=== PATIENT | male | born 1945 | race Caucasian/White ===

== ENCOUNTER → 2023-08-29 07:19 | Outpatient (REF) | payer MEDICARE, OTHER, SELFPAY | LOC: MRI 07:19 | PROVIDERS: ATTENDING PHYSICIAN Urology; FAMILY PHYSICIAN Internal Medicine | DX: R97.20 Elevated prostate specific antigen [PSA] (principal) | CPT/HCPCS: 72197; A9575 ==

== ENCOUNTER → 2023-11-26 11:38 | Outpatient (REF) | payer MEDICARE, OTHER, SELFPAY | LOC: MRI 3T 11:38 | PROVIDERS: ATTENDING PHYSICIAN Pain Medicine Interventional Pain Medicine; FAMILY PHYSICIAN Internal Medicine | DX: M54.16 Radiculopathy, lumbar region (principal) | CPT/HCPCS: 72158; A9575 ==

== ENCOUNTER → 2024-01-27 19:09 | Outpatient (REF) | payer MEDICARE, OTHER, SELFPAY | LOC: MRI 19:09 | PROVIDERS: ATTENDING PHYSICIAN Urology; FAMILY PHYSICIAN Internal Medicine | DX: R97.20 Elevated prostate specific antigen [PSA] (principal) | CPT/HCPCS: 72197; A9575 ==

== ENCOUNTER 2025-04-25 19:15 | Inpatient (IN) | payer MEDICARE, OTHER, SELFPAY ==
[2025-04-25] VITALS (9 sets, daily range): BP systolic 165–200; BP diastolic 39–102; BMI 34.1
--- NOTE | 2025-04-25 16:28 | ED.GENMED ---
History of Present Illness
<Jose Hernandez PA-C - Last Filed: 04/25/25 17:52>
General
Chief Complaint: Heart Rate Problem
Time Seen by Provider: 04/25/25 16:19
History of Present Illness
History of Present Illness:
80-year-old male with history of obstructive sleep apnea, tobacco use, hypertension, hyperlipidemia, and diet-controlled diabetes presents to the emergency department for evaluation of a low heart rate. He states for several months he has been
progressively weaker and dealing with depression, for the past 2 weeks this seems to have escalated and he was referred to outpatient physical therapy by his primary care physician. On arrival to physical therapy his vital signs were assessed and
he was noted to have a heart rate of 30. Patient reports general fatigue but denies any chest pain or shortness of breath. Per his he has had essentially no tolerance to even minimal exertion over the past 2 weeks. He denies leg swelling,
weight gain, or night sweats. No recent fevers or chills. Denies any recent or remote tick bites to his knowledge.
Past History
<Jose Hernandez PA-C - Last Filed: 04/25/25 17:52>
Past History
ED Past Medical History: GERD, HTN, NIDDM, Renal failure and Other (sleep apnea)
ED Past Surgical History: Orthopedic
Social History
Tobacco: Non-smoker
Personal:
Living: with family
Review of Systems
<Jose Hernandez PA-C - Last Filed: 04/25/25 17:52>
Review of Systems
Allergies reviewed?: Yes
All Other Systems: ROS reviewed and negative except as documented in HPI and ROS
Phy Exam
<Jose Hernandez PA-C - Last Filed: 04/25/25 17:52>
Physical Exam
Physical Exam:
GEN: Well appearing, NAD, WDWN
Eyes: PERRLA, EOMs intact, no scleral icterus
HENT: NCAT, oral mucosa moist
Lungs: CTAB, no wheezes, rales, rhonchi, normal chest wall excursion
Cardiac: Severely bradycardic, irregular, no murmur
Abdomen: S, NT, ND, NABS, no masses or hepatosplenomegaly
Neuro: AO x 3
MSK: No gross deformity or ecchymosis. Trace bilateral lower extremity edema
Skin: No rashes, petechiae. Normal color, no pallor or jaundice.
Psych: Calm, cooperative, proper hygiene
Course
<Jose Hernandez PA-C - Last Filed: 04/25/25 17:52>
Orders/Labs/Results
Orders:
Orders
04/25/25 16:19
EKG [Electrocardiogram (*1)] Stat
Reason for Study: Bradycardia / Tachycardia
EKG- Treatment ONCE
04/25/25 16:28
CR Chest Portable - 1 View Urgent
Comment:
Reason For Exam: heart block
Reason Study Needs to be Portable: Other
04/25/25 16:49
Complete Blood Count/With Diff Urgent
Comprehensive Metabolic Panel Urgent
Lyme Progressive Urgent
Magnesium Urgent
NT-proBNP Urgent
TSH Reflex To Free T4 Urgent
Troponin I Urgent
04/25/25 17:45
Amlodipine [Norvasc] 5 mg PO NOW STA
04/25/25 17:48
0.9% Sodium Chloride 1000 ml [Nss] 1,000 ml IV BOLUS
Dextrose 50%-Water [Dextrose 50% Syringe] 12.5 grams IV [id number] PRN
Dextrose 50%-Water [Dextrose 50% Syringe] 25 grams IV NOW STA
Insulin Human Regular [Novolin R] 5 units IV NOW STA
Bedside Glucose PRE IV Insulin- HyperK+ NOW
04/25/25 19:18
Bedside Glucose POST IV Insulin- HyperK+ Q1HX2,Q2HX2
04/25/25 20:18
Potassium Urgent
Comment: draw 2 hours after regular insulin IV administration
04/26/25 06:00
Echo 2D MMode Color/Doppler IN AM
Reason for Study: complete heart block
Cardiology Consult: Omer Vergara
Comment: Please do is one of the first studies of Friday
Abnormal Lab Results
04/25/25 04/25/25
16:49 18:03
RBC 3.61 L 10^6/uL
(4.70-6.10)
Hgb 11.7 L g/dL
(13.0-18.0)
Hct 34.1 L %
(39.0-52.0)
MCV 94.5 H fL
(80.0-94.0)
MCH 32.4 H pg
(27.0-31.0)
MPV 11.6 H fL
(7.4-10.4)
Absolute Monos (auto) 0.7 H 10^3/uL
(0.1-0.6)
Sodium 132 L mmol/L
(135-145)
Potassium 5.9 H mmol/L
(3.5-5.1)
BUN 84 H mg/dl
(9-20)
Creatinine 1.9 H mg/dL
(0.7-1.3)
Glucose 112 H mg/dl
(70-99)
Calcium 8.3 L mg/dl
(8.4-10.2)
Magnesium 2.5 H mg/dl
(1.6-2.3)
Troponin I 0.049 H* ng/ml
POC Glucose 113 H mg/dl
(70-99)
04/25/25 16:49
Vital Signs
Initial and Last Documented VS:
Initial Vital Signs
Temp Pulse Resp Pulse Ox
98.2 F 30 18 98
04/25/25 16:10 04/25/25 16:10 04/25/25 16:10 04/25/25 16:10
Last Documented Vital Signs
Temp Pulse Resp BP Pulse Ox
98.2 F 26 15 172/48 97
04/25/25 16:59 04/25/25 17:30 04/25/25 17:30 04/25/25 16:59 04/25/25 17:30
<Wesley Otero, DO - Last Filed: 04/25/25 18:13>
Orders/Labs/Results
Orders:
Orders
04/25/25 16:19
EKG [Electrocardiogram (*1)] Stat
Reason for Study: Bradycardia / Tachycardia
EKG- Treatment ONCE
04/25/25 16:28
CR Chest Portable - 1 View Urgent
Comment:
Reason For Exam: heart block
Reason Study Needs to be Portable: Other
04/25/25 16:49
Complete Blood Count/With Diff Urgent
Comprehensive Metabolic Panel Urgent
Lyme Progressive Urgent
Magnesium Urgent
NT-proBNP Urgent
TSH Reflex To Free T4 Urgent
Troponin I Urgent
04/25/25 17:45
Amlodipine [Norvasc] 5 mg PO NOW STA
04/25/25 17:48
0.9% Sodium Chloride 1000 ml [Nss] 1,000 ml IV BOLUS
Dextrose 50%-Water [Dextrose 50% Syringe] 12.5 grams IV [id number] PRN
Dextrose 50%-Water [Dextrose 50% Syringe] 25 grams IV NOW STA
Insulin Human Regular [Novolin R] 5 units IV NOW STA
Bedside Glucose PRE IV Insulin- HyperK+ NOW
04/25/25 19:18
Bedside Glucose POST IV Insulin- HyperK+ Q1HX2,Q2HX2
04/25/25 20:18
Potassium Urgent
Comment: draw 2 hours after regular insulin IV administration
04/26/25 06:00
Echo 2D MMode Color/Doppler IN AM
Reason for Study: complete heart block
Cardiology Consult: Omer Vergara
Comment: Please do is one of the first studies of Friday
Abnormal Lab Results
04/25/25 04/25/25
16:49 18:03
RBC 3.61 L 10^6/uL
(4.70-6.10)
Hgb 11.7 L g/dL
(13.0-18.0)
Hct 34.1 L %
(39.0-52.0)
MCV 94.5 H fL
(80.0-94.0)
MCH 32.4 H pg
(27.0-31.0)
MPV 11.6 H fL
(7.4-10.4)
Absolute Monos (auto) 0.7 H 10^3/uL
(0.1-0.6)
Sodium 132 L mmol/L
(135-145)
Potassium 5.9 H mmol/L
(3.5-5.1)
BUN 84 H mg/dl
(9-20)
Creatinine 1.9 H mg/dL
(0.7-1.3)
Glucose 112 H mg/dl
(70-99)
Calcium 8.3 L mg/dl
(8.4-10.2)
Magnesium 2.5 H mg/dl
(1.6-2.3)
Troponin I 0.049 H* ng/ml
POC Glucose 113 H mg/dl
(70-99)
04/25/25 16:49
Vital Signs
Initial and Last Documented VS:
Initial Vital Signs
Temp Pulse Resp Pulse Ox
98.2 F 30 18 98
04/25/25 16:10 04/25/25 16:10 04/25/25 16:10 04/25/25 16:10
Last Documented Vital Signs
Temp Pulse Resp BP Pulse Ox
98.2 F 26 15 172/48 97
04/25/25 16:59 04/25/25 17:30 04/25/25 17:30 04/25/25 16:59 04/25/25 17:30
<Jose Hernandez PA-C - Last Filed: 04/25/25 17:52>
*Pulse Oximetry
SaO2: 98
Oxygen Mode of Delivery: Room air
<Wesley Otero DO - Last Filed: 04/25/25 18:13>
*Pulse Oximetry
Patient hypoxic: no
*Sales Officer Interpretation
Rate: bradycardiac
Interpretation: abnormal
Heart Rate: 28
Rhythm: other
*Critical Care Note
Total Time (30-74mins, 75-104mins- exclusive of procedures): 32
Data Reviewed
Review of Other/Old Records Reveals: Labs
Source: patient
ED Attending Note
<Jose Hernandez PA-C - Last Filed: 04/25/25 17:52>
-
Portions of this chart may have been created with voice recognition software.� Occasional wrong word or��sound alike� substitutions may have occurred due to the inherent limitations of voice recognition software.
<Wesley Otero DO - Last Filed: 04/25/25 18:13>
ED Attending Note
Patient seen and examined by attending physician: Yes
I performed the substantive portion of visit, reviewed & personally made and approve the management plan that is documented in note by myself or HOME.: Yes
ED Attending Note:
Seen with PA examined independently presents with fatigue, looks to be in high degree AV block, will check for any reversible causes,
Discharge Plan
Departure
Patient Disposition: Admit
Date of Disposition: 04/25/25
Time of Disposition: 17:47
Admit to: IVU
Presentation/result/management discussed w/ accepting MD/DO: Hospitalist
Discharge Problem:
Complete heart block, YURIY (acute kidney injury)
Prescriptions:
No Action
atorvastatin 40 MG tablet
40 mg PO DAILY
ascorbic acid (vitamin C) [Vitamin C] 500 MG tablet
500 mg PO DAILY
B-complex with vitamin C [Super B/C] 1 EACH capsule
1 ea PO DAILY
calcium carb, citrate-vit D3 1 EACH tablet extended release
1 tab PO DAILY
bupropion HCl 75 MG tablet
75 mg PO DAILY
acetaminophen 500 mg Tablet
1,000 mg PO Q6H PRN (Reason: mild pain)
doxazosin 8 mg Tablet
8 mg PO HS
Glucosamine Chondroitin 550-30-1 mg Capsule
1 cap PO DAILY
multivitamin Tablet
1 tab PO DAILY
venlafaxine 75 mg capsule,extended release 24hr
75 mg PO DAILY
Rx Instructions:
taken w/ 150mg = 225mg
tizanidine 2 mg tablet
2 mg PO Q8H PRN (Reason: muscle spasms)
venlafaxine 150 mg capsule,extended release 24hr
150 mg PO DAILY
Rx Instructions:
taken w/ 75mg = 225mg
ramipril 10 mg capsule
10 mg PO DAILY
trazodone 100 mg tablet
100 mg PO HS Qty: 1 0RF
oxycodone 5 mg tablet
5 mg PO Q4H PRN (Reason: moderate pain) Qty: 1 0RF
amlodipine [Norvasc] 2.5 mg tablet
2.5 mg PO DAILY Qty: 30 0RF
Rx Instructions:
take low dose Norvasc for systolic blood pressure more than 160
clonazepam 2 MG tablet
2 mg PO HS
Referrals:
NONE,* [Active, Internal Medicine]
Interventions
Interventions:
*Risk Screen - Suicide Last Done: 04/25/25 16:10
*General Assessment Last Done: 04/25/25 16:45
*ED- Fall Risk Assessment Last Done: 04/25/25 16:45
*ED COVID-19 Vaccine History Last Done: 04/25/25 16:45
*ED Influenza Vaccine History Last Done: 04/25/25 16:45
ED- Cardiac Assessment Last Done: 04/25/25 16:45
ED- Pulmonary Assessment Last Done: 04/25/25 16:45
Discharge Date and Time
Print Language: MACEDONIAN
[2025-04-25 17:04] LABS: Hematocrit 34.1 % (39.0-52.0); Hemoglobin 11.7 g/dL (13.0-18.0); Mean Corp Hgb Conc. 34.3 g/dL (33.0-37.0); Mean Corpuscular Volume 94.5 fL (80.0-94.0); Nucleated Red Blood Cells % 0 % (-); Platelet Count 146 10^3/uL (130-400); Red Cell Dist. Width 11.8 % (11.5-14.5)
[2025-04-25 17:18] LABS: ALT (SGPT) 24 U/L (0-50); AST (SGOT) 25 U/L (17-59); Albumin 3.7 g/dl (3.5-5.0); Alkaline Phosphatase 74 U/L (38-126); Blood Urea Nitrogen 84 mg/dl (9-20); Calcium 8.3 mg/dl (8.4-10.2); Carbon Dioxide 23 mmol/L (22-30); Chloride 107 mmol/L (98-107); Estimated Creatinine Clearance 37 ml/min; Glucose 112 mg/dl (70-99); Magnesium 2.5 mg/dl (1.6-2.3); Potassium 5.9 mmol/L (3.5-5.1); Sodium 132 mmol/L (135-145); Total Protein 6.4 g/dl (6.3-8.2); eGFR 35.66
[2025-04-25 17:31] LABS: Troponin I 0.049 ng/ml
--- NOTE | 2025-04-25 17:35 | CON.CAR ---
Addendum entered and electronically signed by Omer Vergara MD 04/25/25 18:24:
.
Primary associate creative director, Dr. Alfonso Peterson
Primary care physician, Dr. Lawson Hood
Patient seen, interviewed and examined by me.
Well-appearing, no acute distress
Bradycardic rate and normal rhythm with normal S1 and S2, no S3 no S4. There is a grade 1/6 apical holosystolic murmur and no rubs. PMI is normally placed.
Lungs are clear to auscultation bilaterally without wheezes rales or rhonchi.
Abdomen soft nontender nondistended with normoactive bowel sounds
Extremities show trace pretibial edema bilaterally no clubbing or cyanosis.
Neurologic exam is grossly nonfocal.
He presents with symptomatic (fatigue) complete heart block with right bundle escape at approximately 30 bpm. He has had no dizziness near-syncope or syncope. He has been otherwise hemodynamically stable, not hypotensive. proBNP is mildly
elevated at 5110 and likely represents a component of heart failure with preserved ejection fraction in the setting of complete heart block.
Medical history is additionally notable for obstructive sleep apnea (uses CPAP), alcohol use disorder, bipolar disorder, hypertension and dyslipidemia.
He did eat a protein shake earlier in the day. While he does have complete heart block with a right bundle branch escape, he has demonstrated hemodynamic stability thus far.
I have opted not to recommend temporary pacing wire tonight but if he were to have any decompensation, that would be the next step.
Plan would be likely permanent pacemaker tomorrow once we review his rhythm after correction of his electrolyte abnormalities and correction of his acute kidney injury.
He is being admitted to the medical service and cardiology will follow in consultation.
Original Note:
Consultation
Consultation Request
Date/Time Consultation Requested: 04/25/2025
Date/Time Consultation Performed: 04/25/2025
Requesting Provider: Dr. Otero in the ER
Performing Provider: Dr. Omer Vergara
Reason for Consultation: New diagnosis of complete heart block
Medical History
-
History of Present Illness:
Patient came to the ER today, his birthday, with 2 weeks worth of fatigue and exertional intolerance and was found to be in new complete heart block and cardiology has been consulted. Patient says that he started to feel tired 2 weeks ago and did
not have his usual energy. He saw his PCP on 04/12/2025 and HR at that time was 95 with a BP of 128/64. Patient was not sure if some of his symptoms were related to his underlying depression for which he takes trazodone, Effexor or and Wellbutrin
plus Klonopin as needed as well, but then in the last 2 weeks his fatigue got even worse and did not seem like his usual depression. When he saw his PCP he was referred to physical therapy and when he arrived to PT today his heart rate was in the
30s and he was referred to the ER. He denies any chest pain or SOB. He denies any edema. He says he has never had a problem like this before.
PMH:
EtOH use disorder
AMBROSE on CPAP
Bipolar depression
HTN
Hyperlipidemia
Past Medical History
Past Medical History: Other (In HPI)
Past Surgical History: Appendectomy and Orthopedic (Lumbar laminectomy, left ROWAN with multiple repeat surgeries due to infection)
Social History
Tobacco: Non-Smoker
Alcohol: Daily (3 [employer] daily)
Drug: None
Family History
Family History: Other (Father of TB, mother of cerebral hemorrhage at age 52)
Allergies / Home Medications
Allergy/AdvReac Type Severity Reaction Status Date / Time
latex Allergy Rash Verified 04/25/25 16:10
�Medication �Instructions �Recorded �Confirmed �Type
B-complex with vitamin C (Super 1 ea PO DAILY 06/18/14 01/16/23 History
B/C capsule)
ascorbic acid (vitamin C) 500 mg 500 mg PO DAILY 06/18/14 01/16/23 History
tablet (Vitamin C)
atorvastatin 40 mg tablet 40 mg PO DAILY 06/18/14 01/16/23 History
calcium ER 600 mg (as carb,cit)-D3 1 tab PO DAILY 06/18/14 01/16/23 History
12.5 mcg (500 unit) tablet, ext.rel
bupropion HCl 75 mg tablet 75 mg PO DAILY 11/03/20 01/16/23 History
acetaminophen 500 mg tablet 1,000 mg PO Q6H PRN mild pain 12/20/22 01/16/23 History
doxazosin 8 mg tablet 8 mg PO HS 12/20/22 01/16/23 History
glucosamine sulf dipot 1 cap PO DAILY 12/25/22 01/16/23 History
chlr,msm,chond 550 mg-C 30 mg-kuldip
1 mg capsule (Glucosamine
Chondroitin)
multivitamin 1 tab PO DAILY 01/16/23 01/16/23 History
ramipril 10 mg capsule 10 mg PO DAILY 01/16/23 01/16/23 History
tizanidine 2 mg tablet 2 mg PO Q8H PRN muscle spasms 01/16/23 01/16/23 History
venlafaxine 150 mg 150 mg PO DAILY 01/16/23 01/16/23 History
capsule,extended release 24 hr
venlafaxine 75 mg capsule,extended 75 mg PO DAILY 01/16/23 01/16/23 History
release 24 hr
amlodipine 2.5 mg tablet (Norvasc) 2.5 mg PO DAILY #30 tabs 01/20/23 Rx
clonazepam 2 mg tablet 2 mg PO HS #1 tab 01/20/23 Rx
oxycodone 5 mg tablet 5 mg PO Q4H PRN moderate pain #1 01/20/23 Rx
tab
trazodone 100 mg tablet 100 mg PO HS #1 tab 01/20/23 Rx
Review of Systems
-
History Source: Patient
All other systems: Negative unless noted
Physical Exam
Vital Signs
Temp Pulse Resp BP Pulse Ox
98.2 F 26 15 172/48 97
11/17/25 16:59 04/25/25 17:30 04/25/25 17:30 04/25/25 16:59 04/25/25 17:30
GEN: NAD, AAO x 3
HEENT: EOMI, MMM
LUNGS: RA. CTA B/L, no wheeze
CV: Complete heart block on telemetry. Reg, S1/S2, no murmur
ABD: ND
EXT: No edema B/L LE
NEURO: Gross non-focal
SKIN: No rash
Lab Results
04/25/25 16:49
04/25/25 16:49
Troponin I 0.049 ng/ml H* 04/25/25 16:49
Kqz-V-Czlwyxdlwwi Pept 5110 pg/ml 04/25/25 16:49
Impression / Plan
-
PCP: Dr. Hood
Cardiology: Dr. Peterson, last seen as a preop consultation 12/31/2022
Impression:
Presented with fatigue and exertional intolerance, new finding of complete heart block 04/25/2025
Complete heart block
YURIY
Hyperkalemia
EtOH use disorder
AMBROSE on CPAP
Bipolar depression
HTN
Hyperlipidemia
Stress echo 04/18/2021: Completed 9 minutes of a modified Huber protocol for total of 4.6 METS of activity and reached 82% of MPHR, intermediate risk stress test based on poor exercise tolerance, but stress echo imaging without obvious abnormality
Plan:
-Patient came to the ER today, his birthday, with 2 weeks worth of fatigue and exertional intolerance and was found to be in new complete heart block and cardiology has been consulted. Patient says that he started to feel tired 2 weeks ago and did
not have his usual energy. He saw his PCP on 04/12/2025 and HR at that time was 95 with a BP of 128/64. Patient was not sure if some of his symptoms were related to his underlying depression for which he takes trazodone, Effexor or and Wellbutrin
plus Klonopin as needed as well, but then in the last 2 weeks his fatigue got even worse and did not seem like his usual depression. When he saw his PCP he was referred to physical therapy and when he arrived to PT today his heart rate was in the
30s and he was referred to the ER. He denies any chest pain or SOB. He denies any edema. He says he has never had a problem like this before.
-ECG reviewed by me is complete heart block
-Patient with complete heart block and a right bundle escape. Patient is not taking any AV katherine blockers. He is hyperkalemic with a potassium of 5.9 and also evidence of new YURIY with creatinine of 1.9. Ramipril should be held
-Consider nephrology consultation. Patient tells me he follows with a drainage design coordinator as an outpatient, but I cannot find any record of that in his [facility] chart and outpatient labs were normal within the last 4 months.
-Recheck labs in a.m. and likely plan on PPM placement on 04/26/2025
-Would also hold Cardura
-BP 170/80, start amlodipine 5 mg daily, a NOW dose was ordered for the ER by me
-Check echo in a.m., order placed by me
-Watch for EtOH withdrawal, patient drinks 3 rum and Cokes a day
--- NOTE | 2025-04-25 17:51 | HPS.HSE ---
Addendum entered and electronically signed by Natasha Callaway MD 04/25/25 19:49:
This is an addendum to the H&P written by Blanka Iyer on 04/25/2025. �Patient seen and examined independently with TOE POUNDER.
80-year-old male past medical history of type 2 diabetes, alcohol use disorder, obstructive sleep apnea on CPAP, posttraumatic stress disorder, bipolar, hypertension, hyperlipidemia, chronic anemia, obesity, presenting with low heart rate. �Weakness
for several months and depression referred for outpatient physical therapy. �At physical therapy heart rate of 30. �Denies shortness of breath or chest pain. �Occasional lightheadedness.
Vital signs show blood pressure 172/48.
Labs show stable anemia of 11.7.
Potassium 5.9. �Creatinine 1.9. �Troponin 0.049. �Cardiac BNP 5000.
EKG shows complete heart block, right bundle branch. �Chest x-ray appears to be unremarkable, report pending.
Patient with symptomatic, hemodynamically stable complete heart block. �Cardiology consulted. �N.p.o. for potential permanent pacemaker tomorrow.
Patient also with possible mild limit of congestive heart failure although not overtly volume overloaded. �YURIY and hyperkalemia could be cardiorenal although unclear. �Hold ramipril. �Insulin dextrose was given. �Recheck BMP. Consider nephrology.
Alcohol withdrawal protocol.
Original Note:
Family Physician
-
Family Physician: * NONE
Chief Complaint
-
generalized weakness
History of Present Illness
Patient is a 80-year-old male with past medical history significant for hypertension, hyperlipidemia, type 2 diabetes, bipolar depression and AMBROSE who presented to [facility] ED for evaluation of generalized weakness. Patient reports he has had slowly
progressing generalized weakness over past 6 months, he states that he was seen recently by his primary care as he got to point he could barely ambulate from his living room to kitchen. Primary care gave him an order for PT. Today he went to PT for
initial evaluation when they referred him to ED for low heart rate. He indorses intermittent lightheadedness. Denies any chest pain, shortness of breath or syncope.
Medical History
Past Medical History
Past Medical History: Reports Other
Additional Past Medical History:
hypertension
hyperlipidemia
type 2 diabetes
bipolar depression
AMBROSE
Past Surgical History: Reports Other
Additional Past Surgical History:
hip [id number] subsequent surgeries due to infection left side
wisdom tooth extraction
Appendectomy
rotator cuff surgery r shoulder 10/2020
Lumbar laminectomy-[facility] 01/13/2023
Social History
Alcohol: Daily (3 rum and cokes per day)
Family History
Family History: Not pertinent
Allergies / Home Medications
Allergies reflects when Allergies were last updated in [employer].
Home Medications with original date entered in [employer]
Allergy/Medication List:
Allergies
Allergy/AdvReac Type Severity Reaction Status Date / Time
latex Allergy Rash-'I Verified 04/25/25 17:46
don't know'
Home Medications
B-complex with vitamin C (Super B/C capsule) 1 ea PO DAILY Supplement 06/18/14
ascorbic acid (vitamin C) 500 mg tablet (Vitamin C) 500 mg PO DAILY Supplement 06/18/14
atorvastatin 40 mg tablet 40 mg PO DAILY High Cholesterol 06/18/14
acetaminophen 500 mg tablet 1,000 mg PO Q6HPRN PRN mild pain 12/20/22
doxazosin 8 mg tablet 8 mg PO HS 12/20/22
glucosamine sulf dipot chlr,msm,chond 550 mg-C 30 mg-kuldip 1 mg capsule (Glucosamine Chondroitin) 1 cap PO DAILY Supplement 12/25/22
ramipril 10 mg capsule 10 mg PO DAILY Heart Disease/Condition 01/16/23
venlafaxine 150 mg capsule,extended release 24 hr 150 mg PO DAILY Mental Health/Anxiety 01/16/23
venlafaxine 75 mg capsule,extended release 24 hr 75 mg PO DAILY Mental Health/Anxiety 01/16/23
bupropion HCl 150 mg 24 hr tablet, extended release (Wellbutrin XL) 150 mg PO DAILY Mental Health/Anxiety 04/25/25
clonazepam 2 mg tablet 2 mg PO HS Mental Health/Anxiety 04/25/25
trazodone 100 mg tablet 100 mg PO HS Sleep 04/25/25
Review of Systems
-
History Source: Patient
Constitutional: Denies Fever or Chills
EENT: Denies Sore Throat
Respiratory: Denies Cough, Hemoptysis or Trouble Breathing
Cardiac: Denies Chest Pain, Diaphoresis or Palpitations
Abdomen/GI: Denies Abdominal Pain, Nausea, Vomiting or Diarrhea
: Denies Dysuria, Frequency or Urgency
Musculoskeletal: Denies Joint Pain
Skin: Denies Rash
Neurological: Reports Dizzy (intermittent lightheadedness) and Weakness (generalized weakness ); Denies Headache or Numbness
Endocrine: Denies Polyuria
Physical Exam
Vital Signs
Vital Signs
Temp Pulse Resp BP Pulse Ox
98.2 F 26 15 172/48 97
04/25/25 16:59 04/25/25 17:30 04/25/25 17:30 04/25/25 16:59 04/25/25 17:30
Physical Exam
General: Well Developed, Well Nourished, No Apparent Distress, Comfortable, Conversant and Obese
HEENT: NormoCephalic, PERRLA, Nose Appears Normal and Ears Appear Normal
Respiratory: Clear and Non Labored Respirations; No Wheezes
Cardiac: S1/S2 and Regular Rhythm; No Murmur or Peripheral Edema
GI: Soft, Non Tender, Non Distended and Normal Bowel Sounds
Musculoskeletal: No Clubbing, No Cyanosis and No Edema
Skin: Warm and IV/Catheter Site
Neuro: Awake and AO x 3
Hematologic/Lymphatic: No Lymphadenopathy
Psych: Calm
Laboratory Results
-
04/25/25 16:49
Laboratory Results
Total Bilirubin 1.2 mg/dl (0.2-1.3) 04/25/25 16:49
AST 25 U/L (17-59) 04/25/25 16:49
ALT 24 U/L (0-50) 04/25/25 16:49
Alkaline Phosphatase 74 U/L (38-126) 04/25/25 16:49
Troponin I 0.049 ng/ml H* 04/25/25 16:49
Data Reviewed
-
Medical Tests (Nuc Med, Echo, EKG etc): Report Reviewed by me (EKG: Critical Test Result: Low HR , AV Block SINUS RHYTHM WITH COMPLETE HEART BLOCK AND IDIOVENTRICULAR RHYTHM LEFT AXIS DEVIATION RIGHT BUNDLE BRANCH BLOCK MINIMAL VOLTAGE CRITERIA
FOR LVH, MAY BE NORMAL VARIANT ( R in aVL ))
Lab Data: Labs Reviewed by me (Na 132, K 5.9, BUN 84, Creat 1.9, glucose 112, Ca 8.3 (corrected to 8.5), mag 2.5, trop 0.049, pBNP 5110)
Impression/Plan
-
IMPRESSION/PLAN:
#generalized weakness likely 2/2 complete heart block
trop 0.049, pBNP 5110
EKG: Critical Test Result: Low HR , AV Block
SINUS RHYTHM WITH COMPLETE HEART BLOCK AND IDIOVENTRICULAR RHYTHM
LEFT AXIS DEVIATION
RIGHT BUNDLE BRANCH BLOCK
MINIMAL VOLTAGE CRITERIA FOR LVH, MAY BE NORMAL VARIANT ( R in aVL )
- Admit to IVU
- Consult Cardiology
- NPO at midnight for likely pacer
- check ECHO
- hold doxazosin
#hyperkalemia
- insulin/dextrose administered in ED
- monitor BMP
#acute kidney injury
Na 132, K 5.9, BUN 84, Creat 1.9
- monitor BMP
- hold ramipril
- consider nephrology consult if does not improve
#alcohol use disorder
reports 3 rum and cokes daily
- MSAS protocol
#hypertension
- hold doxazosin and ramipril
- start amlodipine
#hyperlipidemia
- continue atorvastatin
#type 2 diabetes
glucose 112
reports is diet controlled
- monitor for hypo/hyper glycemia
#bipolar depression
- continue bupropion and venlafaxine
#AMBROSE
on CPAP at night
- CPAP PRN and HS
Code status: full code
DVT prophylaxis: heparin sq
[2025-04-25 18:04] LABS: Glucose - Point of Care 113 mg/dl (70-99)
[2025-04-25] MEDS: DEXTROSE 50% SYRINGE 25 GRAMS IV (18:04)
[2025-04-25] MEDS: NOVOLIN R 5 UNITS IV (18:04)
[2025-04-25] MEDS: NORVASC 5 MG PO (18:07)
[2025-04-25] MEDS: NSS 1000 IV (18:40)
[2025-04-25 19:22] LABS: Glucose - Point of Care 143 mg/dl (70-99)
[2025-04-25 20:20] LABS: Glucose - Point of Care 149 mg/dl (70-99)
[2025-04-25 21:16] LABS: Potassium 5.2 mmol/L (3.5-5.1)
[2025-04-25 22:11] LABS: Glucose - Point of Care 165 mg/dl (70-99)
[2025-04-25] MEDS: KLONOPIN 2 MG PO (22:39)
[2025-04-25] MEDS: DESYREL 100 MG PO (22:39)
[2025-04-25 22:57] LABS: Troponin I 0.046 ng/ml
[2025-04-25] MEDS: HEPARIN 5000 UNITS SC (23:06)
[2025-04-26] VITALS (14 sets, daily range): BP systolic 110–179; BP diastolic 48–156; PULSE 71; BMI 36.7
[2025-04-26 01:05] LABS: Glucose - Point of Care 161 mg/dl (70-99)
[2025-04-26 03:55] LABS: Troponin I 0.044 ng/ml
[2025-04-26 03:59] LABS: Blood Urea Nitrogen 85 mg/dl (9-20); Calcium 7.9 mg/dl (8.4-10.2); Carbon Dioxide 22 mmol/L (22-30); Chloride 110 mmol/L (98-107); Estimated Creatinine Clearance 40 ml/min; Glucose 137 mg/dl (70-99); HDL Cholesterol 36 mg/dl; LDL Cholesterol, Calculated 64 mg/dl; Potassium 5.4 mmol/L (3.5-5.1); Sodium 135 mmol/L (135-145); Very Low Density Lipoprotein 24 mg/dl (0-30); eGFR 40.75
--- NOTE | 2025-04-26 04:15 | PTCARENOTE ---
Pt admitted from ED to room 2251, aaox3, denies c/o CP, lightheadedness or SOB. SB with complete HB on tele, HR low 30's. Pox 95%, O2 @ 2L applied via NC, CPap applied at bedtime. SBP high 170-180's, asymptomatic. Norvasc was given in ED prior
transferring pt on the unit. K 5.2. grounds maintenance worker DRILLING RIG OPERATOR made aware, on pt labs and BP, no new orders at this time.
[2025-04-26 07:18] LABS: Glucose - Point of Care 134 mg/dl (70-99)
[2025-04-26 09:33] LABS: Glycohemoglobin (HgbA1c) 6.3 % (4.0-5.9)
[2025-04-26] MEDS: LOKELMA 10 GRAM PO (10:30)
[2025-04-26] MEDS: EFFEXOR XR 150 MG PO (10:31)
[2025-04-26] MEDS: LIPITOR 40 MG PO (10:31)
[2025-04-26] MEDS: WELLBUTRIN XL (24 hour extended release) 150 MG PO (10:31)
[2025-04-26] MEDS: HEPARIN 5000 UNITS SC (10:31)
[2025-04-26] MEDS: EFFEXOR XR 75 MG PO (10:31)
--- NOTE | 2025-04-26 11:00 | CM ---
Chart reviewed. Patient is independent of ADLS, lives with his in a [address], [facility], ambulates with a RW and also has a SPC. Plan is for the patient to return home. CM to follow
[2025-04-26] MEDS: NORVASC 5 MG PO (11:29)
--- NOTE | 2025-04-26 11:39 | W.PN.UPDATE ---
Update Note
Progress Note Update
Discussed pacemaker implantation with patient. He is right-hand dominant so we will place a left-sided dual-chamber pacemaker. Prior echocardiogram and stress echocardiogram reviewed with normal ejection fraction. I discussed with patient and
warned of thousand risk of [place] stroke and and a 1% risk of pneumothorax tamponade infection or bleeding. I took time to answer all questions. He is agreeable to dual-chamber pacemaker implantation later today. He signed informed consent. He
has not had any significant longer pauses on telemetry and remarks for approximately 6 to 8 weeks of fatigue.
[2025-04-26 12:23] LABS: Glucose - Point of Care 131 mg/dl (70-99)
--- NOTE | 2025-04-26 12:25 | W.CON.NEPH ---
Consultation
-
Date/Time Consultation Requested: 04/26/2025 10:00 AM
Date/Time Consultation Performed: 04/26/2025 12:30 PM
Requesting Provider: Dr. Penny
Performing Provider: Dr. Carty
Reason for Consultation: Acute kidney injury/hyperkalemia
Medical History
-
Chief Complaint: Acute kidney injury/Hyperkalemia
History of Present Illness:
The patient is a 80-year-old male with a past medical history of anxiety maintained on Wellbutrin,Venlafaxine, and clonazepam. He has a history of dyslipidemia maintained on statin therapy. He has a history of hypertension maintained on ramipril
and doxazosin. He has a known history of PTSD and bipolar disease. He presented with bradycardia and weakness over the past several months. Nephrology was consulted for hyperkalemia with a potassium of 5.4 and acute kidney injury with a
creatinine up from 0.8 noted from January 2023 to 1.7. He has remained hemodynamically stable but will require pacemaker placement.
Past Medical History
EtOH use disorder
AMBROSE on CPAP
Bipolar depression
HTN
Hyperlipidemia
Appendectomy and Orthopedic (Lumbar laminectomy, left ROWAN with multiple repeat surgeries due to infection)
Social History
Tobacco: Non-Smoker
Alcohol: Daily
Drug: None
Family History
no ckd
Allergies / Home Medications
Allergy/AdvReac Type Severity Reaction Status Date / Time
latex Allergy Rash-'I Verified 04/25/25 17:46
don't know'
�Medication �Instructions �Recorded �Confirmed �Type
B-complex with vitamin C (Super 1 ea PO DAILY Supplement 06/18/14 04/25/25 History
B/C capsule)
ascorbic acid (vitamin C) 500 mg 500 mg PO DAILY Supplement 06/18/14 04/25/25 History
tablet (Vitamin C)
atorvastatin 40 mg tablet 40 mg PO DAILY High Cholesterol 06/18/14 04/25/25 History
acetaminophen 500 mg tablet 1,000 mg PO Q6HPRN PRN mild pain 12/20/22 04/25/25 History
doxazosin 8 mg tablet 8 mg PO HS 12/20/22 04/25/25 History
glucosamine sulf dipot 1 cap PO DAILY Supplement 12/25/22 04/25/25 History
chlr,msm,chond 550 mg-C 30 mg-kuldip
1 mg capsule (Glucosamine
Chondroitin)
ramipril 10 mg capsule 10 mg PO DAILY Heart 01/16/23 04/25/25 History
Disease/Condition
venlafaxine 150 mg 150 mg PO DAILY Mental 01/16/23 04/25/25 History
capsule,extended release 24 hr Health/Anxiety
venlafaxine 75 mg capsule,extended 75 mg PO DAILY Mental 01/16/23 04/25/25 History
release 24 hr Health/Anxiety
bupropion HCl 150 mg 24 hr tablet, 150 mg PO DAILY Mental 04/25/25 04/25/25 History
extended release (Wellbutrin XL) Health/Anxiety
clonazepam 2 mg tablet 2 mg PO HS Mental Health/Anxiety 04/25/25 04/25/25 History
trazodone 100 mg tablet 100 mg PO HS Sleep 04/25/25 04/25/25 History
Review of Systems
-
History Source: Patient
All other systems: Negative unless noted
Constitutional: Fatigue
EENT: No Symptoms
Respiratory: No Symptoms
Cardiac: No Symptoms
Abdomen/GI: Diarrhea
Musculoskeletal: Other (Chronic back pain on NSAIDs daily)
Skin: No Symptoms
Neurological: No Symptoms
Endocrine: No Symptoms
Hematologic/Lymphatic: No Symptoms
Physical Exam
Vital Signs
Vital Signs
Temp Pulse Resp BP Pulse Ox
97.8 F 26 18 173/98 99
04/26/25 11:05 04/26/25 11:29 04/26/25 11:05 04/26/25 11:29 04/26/25 11:05
Lab Results
04/25/25 16:49
04/26/25 03:14
WBC 8.2 10^3/uL (4.8-10.8) 04/25/25 16:49
RBC 3.61 10^6/uL (4.70-6.10) L 04/25/25 16:49
Hgb 11.7 g/dL (13.0-18.0) L 04/25/25 16:49
Hct 34.1 % (39.0-52.0) L 04/25/25 16:49
Plt Count 146 10^3/uL (130-400) 04/25/25 16:49
Sodium 135 mmol/L (135-145) 04/26/25 03:14
Potassium 5.4 mmol/L (3.5-5.1) H 04/26/25 03:14
Chloride 110 mmol/L (98-107) H 04/26/25 03:14
Carbon Dioxide 22 mmol/L (22-30) 04/26/25 03:14
BUN 85 mg/dl (9-20) H 04/26/25 03:14
Creatinine 1.7 mg/dL (0.7-1.3) H 04/26/25 03:14
eGFR 40.75 04/26/25 03:14
Glucose 137 mg/dl (70-99) H 04/26/25 03:14
Calcium 7.9 mg/dl (8.4-10.2) L 04/26/25 03:14
Ktj-R-Gaasokfcflt Pept 5110 pg/ml 04/25/25 16:49
Albumin 3.7 g/dl (3.5-5.0) 04/25/25 16:49
Physical Exam
General: AOx3, Nontoxic , NAD
HEENT: PERRL, EOMI, Anicteric, Conjunctivae Clear, Ear/Nose Intact, Hearing Normal, Oropharynx Clear/Moist, Dentition Intact, Facial Symmetry, Neck Supple, Neck: Trachea Midline, No JVD and No Thyromegaly, no Bruits
Respiratory: Clear to auscultation bilaterally with normal lung excursion
Cardiac: S1/S2 and Regular Rate/Rhythm bradycardic
Breast: Deferred by me
Abdomen: Soft, Nontender, Nondistended, Normal Bowel Sounds and No Hepatosplenomegaly
Rectal: Deferred by Provider
Genito-urinary: No Costovertebral Tenderness
Extremities: No Clubbing, No Cyanosis and No Edema
Skin: No Rash or open lesions
Neuro: Nonfocal/Grossly Intact, CN II-XII (Intact) and Strength (Musculoskeletal exam 5 out of 5 both upper and lower extremities)
Hematologic/Lymphatic: No Cervical Lymphadenopathy, No Submandibular Lymphadenopathy and No Supraclavicular Lymphadenopathy
Psych: Mood/afflect pleasant, Insight/judgement good and Appropriate
Vascular: plus 1 pedal and radial pulses
Data Reviewed
-
Radiology: Report Reviewed by me (Chest x-ray personally reviewed showed mild interstitial changes but does not appear to be consistent with congestive heart failure or pneumonic process)
Labs: Labs Reviewed by me (BMP CBC)
Old Records: Reviewed (Reviewed old records in EMR from date January 17, 2023 creatinine 0.8)
Assessment/Plan
-
Impression:
Acute kidney injury (1.7)
Hyperkalemia
Symptomatic bradycardia
History of anxiety
Hypertension history
Dyslipidemia
Daily NSAID use for chronic back pain
Diabetes (diet controlled)
Plan:
YURIY:
- Will initiate new work up
- This could be prerenally mediated in setting of bradycardia although patient has been hemodynamically stable per review of hospital record
- Will obtain urine protein to creatinine ratio fractional secretion of sodium urinalysis and kidney and bladder ultrasound
- ARLENE inhibitor currently held and patient is on amlodipine for hypertension
- Of note patient takes daily NSAIDs and this could impact CKD
Hyperkalemia:
- Lokelma was given this morning
- ARLENE inhibitor currently
--- NOTE | 2025-04-26 12:37 | W.PN.HOSP.TC ---
Today's Communication/Plan
-
Monitor vitals
See plan
Plan for pacemaker today
Monitor renal function
Check urine studies
Bladder scan
Assessment / Plan
Assessment / Plan
General: Well Developed, Well Nourished, No Apparent Distress
HEENT: NormoCephalic, PERRLA
Respiratory: Clear and Non Labored Respirations; No Wheezes
Cardiac: S1/S2 and Regular Rhythm; bradycardia
GI: Soft, Non Tender, Non Distended and Normal Bowel Sounds
Musculoskeletal: No Edema
Neuro: Awake and AO x 3
Psych: Calm
generalized weakness likely 2/2 complete heart block
trop 0.049, pBNP 5110
EKG: Critical Test Result: Low HR , AV Block
SINUS RHYTHM WITH COMPLETE HEART BLOCK AND IDIOVENTRICULAR RHYTHM
LEFT AXIS DEVIATION
RIGHT BUNDLE BRANCH BLOCK
MINIMAL VOLTAGE CRITERIA FOR LVH, MAY BE NORMAL VARIANT ( R in aVL )
Cardiology following, plan for pacemaker today
- check ECHO
- hold doxazosin
Lyme studies pending
TSH wnl
Mild troponin elevation likely secondary to complete heart block
Monitor
#hyperkalemia
Monitor
kaxelate
#acute kidney injury
Na 132, K 5.9, BUN 84, Creat 1.9
- monitor BMP
- hold ramipril
Nephrology evaluation
Check UA, urine lites
Bladder scan
Acute urinary retention
Bladder scan, straight cath as needed
alcohol use disorder
reports 3 rum and cokes daily
- MSAS protocol
hypertension
Hypertensive urgency on admission
- hold doxazosin and ramipril
- start amlodipine
hyperlipidemia
- continue atorvastatin
type 2 diabetes
a1c 6.3
reports is diet controlled
- monitor for hypo/hyper glycemia
bipolar depression
- continue bupropion and venlafaxine
#AMBROSE
on CPAP at night
- CPAP PRN and HS
Code status: full code
DVT prophylaxis: heparin sq
I spent a total of 52 minutes with the patient or on the floor. More than 50% of this time involved counseling and coordination of care.
Anticipated Discharge: 24 - 48 hours
Subjective/Interval History
-
Date of Service: April 26, 2025
Does report fatigue
Objective Data
-
Labs:
Laboratory Results
04/26/25
03:14
Sodium 135
Potassium 5.4 H
Chloride 110 H
Carbon Dioxide 22
BUN 85 H
Creatinine 1.7 H
Glucose 137 H
Calcium 7.9 L
Vital Signs:
Vital Signs
Temp Pulse Resp BP Pulse Ox
97.8 F 26 18 173/98 99
04/26/25 11:05 04/26/25 11:29 04/26/25 11:05 04/26/25 11:29 04/26/25 11:05
I&O
04/25/25 04/26/25 04/27/25
06:59 06:59 06:59
Intake Total 1480 / 1480
Output Total 900 / 900
Balance 580 / 580
--- NOTE | 2025-04-26 13:58 | CM ---
Offered patient information on [facility] and substance abuse counseling. Patient declined
--- NOTE | 2025-04-26 15:58 | ITS.CL.PACE ---
[employer] - Pacemaker Implant
Pacemaker Implant
Procedure Report:
Date of Procedure: April 26, 2025
Patient : [id number]
Procedure: Pacemaker Implantation.
Indication: Complete heart block
Implants:
Pulse Generator: Medtronic; Model# W1 DR 01; SN: [id number]
RA Lead: Medtronic; Model# 4574; SN: [id number]
RV Lead: Medtronic; Model# 4074; SN: [id number]
Technique: A time out was performed. The procedure site was identified. The patient was anesthetized by the anesthesia service. Preoperative sedation was administered. The patient was prepped and draped in the usual fashion. Local anesthetic was
applied to the left prepectoral subcutaneous tissue. A 3 inch incision was made 2.5 inches below the left clavicle. A subcutaneous pocket was created with blunt and sharp dissection and hemostasis controlled with Bovie cautery. The left axillary
vein was accessed within the pocket without difficulty. Hemostasis was excellent. The leads were introduced with 7 Fr hemostatic peel away introducer sheaths. The ventricular lead was placed at the right ventricular apex. The atrial lead was placed
in the right atrial appendage. 10 volt pacing did not capture the diaphragm. The leads were secured to the pectoralis muscle and fascia. The leads were appropriately attached to the device. The pocket was irrigated with antibiotic solution. The
device and leads were placed in the pocket. The incision was closed in three layers with absorbable suture. The estimated blood loss was minimal. There were no complications.��
Lead Analysis:
RA lead: P: 2.8 mV; Threshold: 0.75 V @ 0.5��ms; Impedance: 550 ohms.
RV lead: R: 8 mV; Threshold: 0.75 V @ 0.5��ms; Impedance: 870 ohms.
Final Programming: DDD 60-130 paced AV interval 180 ms
�
Conclusion: Uncomplicated Medtronic pacemaker implant.
Recommendation: Routine post pacemaker care.
[2025-04-26] MEDS: NSS 1000 IV (17:04)
[2025-04-26] MEDS: HEPARIN SC (17:04)
[2025-04-26 17:14] LABS: Urine Character Slightly Cloudy (Clear)
[2025-04-26 17:23] LABS: Urine Squamous Cell 0-2 /LPF (Few)
[2025-04-26 17:24] LABS: Urine Red Blood Cell 80-90 /HPF (0-2)
[2025-04-26 17:25] LABS: Urine White Cell 60-70 /HPF (0-5)
[2025-04-26] MEDS: FOLVITE PO (19:07)
[2025-04-26] MEDS: THIAMINE INJECTION 200 MG IV (20:10)
[2025-04-26] MEDS: TYLENOL 650 MG PO (20:10)
[2025-04-26] MEDS: ANCEF 5 IV (21:43)
[2025-04-26] MEDS: KLONOPIN 2 MG PO (21:43)
[2025-04-26] MEDS: DESYREL 100 MG PO (21:43)
[2025-04-26 22:39] LABS: Glucose - Point of Care 223 mg/dl (70-99)
[2025-04-27] VITALS (17 sets, daily range): BP systolic 122–190; BP diastolic 50–143; PULSE 77–82; O2SAT 97; BMI 35.9
[2025-04-27] MEDS: HEPARIN 5000 UNITS SC ×4 (00:29→23:41)
--- NOTE | 2025-04-27 04:15 | PTCARENOTE ---
: Assumed care on pt at 1900, aaox3, drowsy and forgetful at times, c/o some discomfort from LCW, prn tylenol given with relief. Area around [facility] dsg free of hematomas or bruising, no signs of bleeding, immobilizer in place. Pt reminded on
activities restrictions. Vpaced on tele, HR 70-80's. Pox 96% on 2L via NC. at bedside , concern and questioning pt's kidney function. Updated on POC, will return in AM to get updates from nephrology.
--- NOTE | 2025-04-27 04:20 | DOWNTIME ---
There was a [employer] Client Orthopedic Designer Downtime on 04/27/2025 from 0100 to 04/27/2025 at 0255. Downtime documentation of patient's care, including medication administrations, has been reconciled in the electronic record per guidelines. Refer to the
patient's paper chart under the miscellaneous tab to see printed paper medication records and downtime forms.
[2025-04-27 04:49] LABS: Hematocrit 33.4 % (39.0-52.0); Hemoglobin 11.1 g/dL (13.0-18.0); Mean Corp Hgb Conc. 33.2 g/dL (33.0-37.0); Mean Corpuscular Volume 100.3 fL (80.0-94.0); Nucleated Red Blood Cells % 0 % (-); Platelet Count 136 10^3/uL (130-400); Red Cell Dist. Width 11.5 % (11.5-14.5)
[2025-04-27 05:17] LABS: Blood Urea Nitrogen 77 mg/dl (9-20); Calcium 7.8 mg/dl (8.4-10.2); Carbon Dioxide 20 mmol/L (22-30); Chloride 111 mmol/L (98-107); Estimated Creatinine Clearance 38 ml/min; Glucose 142 mg/dl (70-99); Potassium 6.1 mmol/L (3.5-5.1); Sodium 137 mmol/L (135-145); eGFR 38.05
[2025-04-27] MEDS: ANCEF 5 IV (05:38)
[2025-04-27] MEDS: LOKELMA 10 GRAM PO ×3 (05:50→17:47)
[2025-04-27] MEDS: NORVASC 5 MG PO (05:50)
--- NOTE | 2025-04-27 06:42 | W.PN.UPDATE ---
Update Note
Progress Note Update
AM labs, critical value: Potassium 6.1. TT'd Nephrology appreciate recommendations, order Lokelma 10 mg TID. Orders placed.
~ 6 am Pt BP 179/76, HR 62. Amlodipine 5 mg PO given early.
--- NOTE | 2025-04-27 07:26 | PTCARENOTE ---
bp 179/76, asymptomatic, K 6.1 with morning labs, air control/anti air warfare officer FORESTRY ENGINEER made aware, new order for lokelma tid given. Norvas scheduled for 0800 given early. Bladder scan for 535cc for no urine output, straight cath for 520 cc.
--- NOTE | 2025-04-27 08:20 | PTCARENOTE ---
Assumed care of pt from previous nursing shift; Pt AAOx3, mildly forgetful & restless this AM. Pt w/no c/o CP or SOB, but does c/o 5/10 L upper chest pain at his new PPM device site. Pt's VSS w/HR 70's & BP 160/62. MDs aware of elevated BP's. Pt is
100% V-paced on telemetry monitoring. Pt w/new device site w/original post op dressing C/D/I w/no signs of bleeding or hematoma. PRN Pain medicine administered as ordered. Pt w/call lin within reach & no additional needs at this time.
[2025-04-27] MEDS: TYLENOL 650 MG PO ×2 (10:38→19:40)
[2025-04-27] MEDS: WELLBUTRIN XL (24 hour extended release) 150 MG PO (10:38)
[2025-04-27] MEDS: EFFEXOR XR 150 MG PO (10:38)
[2025-04-27] MEDS: EFFEXOR XR 75 MG PO (10:38)
[2025-04-27] MEDS: FLUSH (NSS) 2 FLUSH IV (10:39)
[2025-04-27] MEDS: THIAMINE INJECTION 200 MG IV ×2 (10:39→21:11)
[2025-04-27] MEDS: LIPITOR 40 MG PO (10:40)
[2025-04-27] MEDS: FOLVITE 1 MG PO (10:40)
--- NOTE | 2025-04-27 12:32 | W.PN.NEPH.PH ---
Addendum entered and electronically signed by Evita Butcher MD 04/27/25 15:09:
will add flomax for U retention
Original Note:
Today's Communication / Plan
-
force diuresis with IVF and lasix
recheck labs later today
Assessment/Plan
-
Impression:
Acute kidney injury (1.7)-baseline cr 1 in December 2024
Hyperkalemia
Symptomatic bradycardia
History of anxiety
Hypertension history
Dyslipidemia
Daily NSAID use for chronic back pain
Diabetes (diet controlled)
Plan:
YURIY: UA with UTI sample but cx neg,
U na is low suggest prerenal in nature with bradycardia+use of NSAIDs
Renal US non acute however required SC last night 500cc
cotn bladder scan and SC as needed-low threshold for cerda
cr no sig change today-may try gentle IVF , he is now s/p pacer which will help with hemodynamics
hyperkalemia-Lokelma course started, lasix if needed, recheck labs later today
BP stable, holding ACEI , echo normal EF, mild
BNP is high but in setting of YURIY, hard to assess vol status clinically
no edema noted currently
d/w pt and at bedside in detail
d/w nursing
high risk encounter
-
-
Date of Service: April 27, 2025
CC / HPI / ROS
-
Chief Complaint:
YURIY, hyperkalemia
History of Present Illness:
cr no change at 1.8, k up at 6.1
BUN better at 77
SC once 500cc last night
BP stable
Review of Systems:
no cp or sob
mild cough
decreased UOP
Labs
-
Labs:
WBC 5.4 10^3/uL (4.8-10.8) 04/27/25 04:30
RBC 3.33 10^6/uL (4.70-6.10) L 04/27/25 04:30
Hgb 11.1 g/dL (13.0-18.0) L 04/27/25 04:30
Hct 33.4 % (39.0-52.0) L 04/27/25 04:30
Plt Count 136 10^3/uL (130-400) 04/27/25 04:30
Sodium 137 mmol/L (135-145) 04/27/25 04:30
Potassium 6.1 mmol/L (3.5-5.1) H* 04/27/25 04:30
Chloride 111 mmol/L (98-107) H 04/27/25 04:30
Carbon Dioxide 20 mmol/L (22-30) L 04/27/25 04:30
BUN 77 mg/dl (9-20) H 04/27/25 04:30
Creatinine 1.8 mg/dL (0.7-1.3) H 04/27/25 04:30
eGFR 38.05 04/27/25 04:30
Glucose 142 mg/dl (70-99) H 04/27/25 04:30
Calcium 7.8 mg/dl (8.4-10.2) L 04/27/25 04:30
Mph-W-Ijhrfdnvqqn Pept 5110 pg/ml 04/25/25 16:49
Albumin 3.7 g/dl (3.5-5.0) 04/25/25 16:49
Physical Exam
-
Vital Signs:
Vital Signs
Temp Pulse Resp BP Pulse Ox
97.7 F 77 18 140/122 96
04/27/25 10:57 04/27/25 11:36 04/27/25 10:57 04/27/25 11:36 04/27/25 10:57
Cardiovascular:: Regular rate and rhythm
Respiratory:: Bilateral: CTA (decreased BS)
Lung Excursion:: Normal
Abdomen:: Nontender and Soft
Extremity Edema:: None: Bilateral:
Cerda Catheter: No
--- NOTE | 2025-04-27 13:22 | W.PN.CARDCBS ---
Today's Communication / Plan
-
Status post dual-chamber pacemaker
Reviewed device precautions with patient
Incision check in our office in 1 week
Monitor on telemetry, daily weights, intake/output
Impression / Plan
-
PCP: Dr. Hood
Cardiology: Dr. Peterson, last seen as a preop consultation 12/31/2022
Impression:
Presented with fatigue and exertional intolerance, new finding of complete heart block 04/25/2025
- s/p DC PPM (MDT) with Dr Caldwell on 04/26/2025
- CXR no PTX, EKG ASVP
Complete heart block
Acute on Chronic HFPEF, BNP >5000
YURIY
Hyperkalemia
EtOH use disorder
AMBROSE on CPAP
Bipolar depression
HTN
Hyperlipidemia
Stress echo 04/18/2021: Completed 9 minutes of a modified Huber protocol for total of 4.6 METS of activity and reached 82% of MPHR, intermediate risk stress test based on poor exercise tolerance, but stress echo imaging without obvious abnormality
Echo 04/26/2025: Normal LV size and function, EF 65%, mild , mild MR, when compared to June 2014, mild was also noted at that time.
Plan:
-Patient came to the ER , his birthday, with 2 weeks worth of fatigue and exertional intolerance and was found to be in new complete heart block and cardiology has been consulted. Patient says that he started to feel tired 2 weeks ago and did not
have his usual energy. He saw his PCP on 04/12/2025 and HR at that time was 95 with a BP of 128/64. Patient was not sure if some of his symptoms were related to his underlying depression for which he takes trazodone, Effexor or and Wellbutrin plus
Klonopin as needed as well, but then in the last 2 weeks his fatigue got even worse and did not seem like his usual depression. When he saw his PCP he was referred to physical therapy and when he arrived to PT today his heart rate was in the 30s
and he was referred to the ER. He denies any chest pain or SOB. He denies any edema. He says he has never had a problem like this before.
-Patient previously with complete heart block and a right bundle escape now with dual-chamber pacemaker. Patient is not taking any AV katherine blockers. He is hyperkalemic with a potassium of 5.9 -> 6.1 and also evidence of new YURIY with creatinine of
1.9 -> 1.8 today; nephrology following.
-BP remains elevated , continue amlodipine 5 mg daily. Appreciate input from nephrology regarding antihypertensives and diuresis in the setting HFPEF with YURIY.
-Watch for EtOH withdrawal, patient drinks 3 rum and Cokes a day
� Incision check in our office in 1 week
� Reviewed post procedure device precautions
� Monitor on telemetry while inpatient
- Monitor intake and output, daily weights, will follow with nephrology for diuresis
Progress Note - Harness And Bag Inspector
Subjective
Date of Service: April 27, 2025
Patient seen and examined. No acute events overnight. Patient resting comfortably in chair. Telemetry shows a paced V paced, a sensed V paced with sinus rhythm. Mild tenderness at device site however no other complaints this time.
Objective
Labs:
04/27/25 04:30
04/27/25 04:30
Labs
Hgb 11.1 g/dL (13.0-18.0) L 04/27/25 04:30
Hct 33.4 % (39.0-52.0) L 04/27/25 04:30
Plt Count 136 10^3/uL (130-400) 04/27/25 04:30
Sodium 137 mmol/L (135-145) 04/27/25 04:30
Potassium 6.1 mmol/L (3.5-5.1) H* 04/27/25 04:30
BUN 77 mg/dl (9-20) H 04/27/25 04:30
Creatinine 1.8 mg/dL (0.7-1.3) H 04/27/25 04:30
Glucose 142 mg/dl (70-99) H 04/27/25 04:30
Troponins
04/25/25 04/25/25 04/26/25
16:49 22:17 03:14
Troponin I 0.049 H* 0.046 H* 0.044 H*
04/26/25
09:17
Troponin I Cancelled
Vital Signs and I&O:
Vital Signs
Temp Pulse Resp BP Pulse Ox
97.7 F 77 18 140/122 92
04/27/25 10:57 04/27/25 11:36 04/27/25 10:57 04/27/25 11:36 04/27/25 12:32
Vital Signs
Temp Pulse Resp BP Pulse Ox
97.7 F 77 18 140/122 92
04/27/25 10:57 04/27/25 11:36 04/27/25 10:57 04/27/25 11:36 04/27/25 12:32
Intake & Output
04/25/25 04/26/25 04/27/25 04/28/25
06:59 06:59 06:59 06:59
Intake Total 1480 / 1480 920 / 920 240 / 240
Output Total 900 / 900 720 / 720
Balance 580 / 580 200 / 200 240 / 240
Physical Exam
Physical Exam
GEN: NAD, AAO x 3
HEENT: EOMI, MMM
LUNGS: RA. CTA B/L, no wheeze
CV: regular rate and rhythm, S1/S2, no murmur; L CIED site bandage in place c/d/i, mild tenderness to palpation
ABD: ND
EXT: No edema B/L LE
NEURO: Gross non-focal
SKIN: No rash
--- NOTE | 2025-04-27 14:15 | W.PN.HOSP.TC ---
Today's Communication/Plan
-
Monitor vital signs see plan
Status post pacemaker
Creatinine higher today with hyperkalemia. Repeat BMP later today
Continue Lokelma
Fluids per nephrology
Start ceftriaxone for UTI, follow urine culture
MSAS protocol
Assessment / Plan
Assessment / Plan
General: Well Developed, Well Nourished, No Apparent Distress
HEENT: NormoCephalic, PERRLA
Respiratory: Clear and Non Labored Respirations; No Wheezes
Cardiac: S1/S2 and Regular paced Rhythm
GI: Soft, Non Tender, Non Distended and Normal Bowel Sounds
Musculoskeletal: No Edema
Neuro: Awake and AO x 3
Psych: Calm
generalized weakness likely 2/2 complete heart block
trop 0.049, pBNP 5110
EKG: Critical Test Result: Low HR , AV Block
SINUS RHYTHM WITH COMPLETE HEART BLOCK AND IDIOVENTRICULAR RHYTHM
LEFT AXIS DEVIATION
RIGHT BUNDLE BRANCH BLOCK
MINIMAL VOLTAGE CRITERIA FOR LVH, MAY BE NORMAL VARIANT ( R in aVL )
Cardiology following, status post dual-chamber pacemaker 04/26. Patient to follow with cardiology outpatient
Echo 04/26 with EF 65%, mild
Lyme studies pending
TSH wnl
Mild troponin elevation likely secondary to complete heart block
Monitor
#hyperkalemia
Monitor
Continue Lokelma
Repeat labs later today
#acute kidney injury
Metabolic acidosis
Creatinine 1.8
- monitor BMP
- hold ramipril
Nephrology following
Check UA, urine lites
Bladder scan
Volume status difficult to assess, elevated proBNP however no clear signs of CHF. Nephrology trying fluids with Lasix
Urinary tract infection
Start ceftriaxone
Follow urine culture
Acute urinary retention
Bladder scan, straight cath as needed
alcohol use disorder
reports 3 rum and cokes daily
- MSAS protocol
hypertension
Hypertensive urgency on admission
- hold ramipril
- start amlodipine
hyperlipidemia
- continue atorvastatin
type 2 diabetes
a1c 6.3
reports is diet controlled
- monitor for hypo/hyper glycemia
bipolar depression
- continue bupropion and venlafaxine
#AMBROSE
on CPAP at night
- CPAP PRN and HS
Code status: full code
DVT prophylaxis: heparin sq
I spent a total of 52 minutes with the patient or on the floor. More than 50% of this time involved counseling and coordination of care.
Anticipated Discharge: > 48 hours
Subjective/Interval History
-
Date of Service: April 27, 2025
Denies pain
Objective Data
-
Labs:
Laboratory Results
04/27/25 04/27/25
04:30 18:00
WBC 5.4
Hgb 11.1 L
Hct 33.4 L
Plt Count 136
Sodium 137 Pending
Potassium 6.1 H* Pending
Chloride 111 H Pending
Carbon Dioxide 20 L Pending
BUN 77 H Pending
Creatinine 1.8 H Pending
Glucose 142 H Pending
Calcium 7.8 L Pending
Vital Signs:
Vital Signs
Temp Pulse Resp BP Pulse Ox
97.7 F 77 18 140/122 92
04/27/25 10:57 04/27/25 11:36 04/27/25 10:57 04/27/25 11:36 04/27/25 12:32
I&O
04/26/25 04/27/25 04/28/25
06:59 06:59 06:59
Intake Total 1480 / 1480 920 / 920 240 / 240
Output Total 900 / 900 720 / 720
Balance 580 / 580 200 / 200 240 / 240
[2025-04-27] MEDS: SODIUM BICARBONATE 1075 MEQ IV (14:45)
[2025-04-27] MEDS: LASIX 40 MG IV (14:45)
[2025-04-27] MEDS: FLUSH (NSS) 3 FLUSH IV (14:46)
[2025-04-27] MEDS: ATIVAN 1 MG PO ×2 (14:46→19:41)
[2025-04-27] MEDS: ROCEPHIN 1000 MG IV (14:46)
[2025-04-27] MEDS: STERILE WATER FOR INJECTION 10 ML IV (14:46)
[2025-04-27] MEDS: FLOMAX 0.4 MG PO (17:46)
--- NOTE | 2025-04-27 18:45 | PTCARENOTE ---
Pt's L wrist IV line w/small infiltrate w/IV NA+Bicarb in 1/2 NSS infusing. This RN noticed some trace edema around IV site. Pt w/no pain. IV ariadna D/C'd, a small amount of pink tinged fluid extracted from site. Site marked for monitoring. LUE
elevated & warm compress applied. VAT team notified. New IV line placed & infusion resumed.
[2025-04-27 18:49] LABS: Blood Urea Nitrogen 69 mg/dl (9-20); Calcium 8.2 mg/dl (8.4-10.2); Carbon Dioxide 25 mmol/L (22-30); Chloride 106 mmol/L (98-107); Estimated Creatinine Clearance 45 ml/min; Glucose 126 mg/dl (70-99); Potassium 4.4 mmol/L (3.5-5.1); Sodium 138 mmol/L (135-145); eGFR 47.36
[2025-04-27] MEDS: KLONOPIN 2 MG PO (21:11)
[2025-04-27] MEDS: DESYREL 100 MG PO (21:11)
[2025-04-27] MEDS: CARDURA 8 MG PO (21:11)
[2025-04-27] MEDS: HYLENEX 150 UNITS SC (22:07)
--- NOTE | 2025-04-27 22:25 | VATNOTE ---
Called by staff educator for Sodium Bicarb infiltrate to lt. wrist. IV removed by primary RN. Pt. denies pain, slight edema noted, warm to touch. Elevated on pillow and warm compress applied, measures approx. 8.5 cm x 6 cm, hyaluronidase injected sq
around site per order, darcy. well. entry level electrical engineer aware.
--- NOTE | 2025-04-27 23:28 | PTCARENOTE ---
Patient received at change of shift resting in the bed. Bicarb gtt infusing as ordered via RUE PIV. The patient reports tenderness at his PPM incision. Left chest wall PPM site with aquacell C/D/I, no hematoma noted, radial pulse palpable. Vpaced on
telemetry. Oxygen saturation 97% on room air. Patient declined to wear CPAP tonight but is willing to wear nasal cannula. IV team in to assess previous IV site where bicarb infiltrated during prev. shift. Call lin within reach. Bed in lowest
position, wheels locked. Care ongoing.
[2025-04-28] VITALS (17 sets, daily range): BP systolic 138–181; BP diastolic 53–148; PULSE 68–70; BMI 36.2
[2025-04-28 04:26] LABS: Hematocrit 31.0 % (39.0-52.0); Hemoglobin 10.1 g/dL (13.0-18.0); Mean Corp Hgb Conc. 32.6 g/dL (33.0-37.0); Mean Corpuscular Volume 98.1 fL (80.0-94.0); Nucleated Red Blood Cells % 0 % (-); Platelet Count 126 10^3/uL (130-400); Red Cell Dist. Width 11.5 % (11.5-14.5)
[2025-04-28 04:50] LABS: Blood Urea Nitrogen 59 mg/dl (9-20); Calcium 7.8 mg/dl (8.4-10.2); Carbon Dioxide 26 mmol/L (22-30); Chloride 108 mmol/L (98-107); Estimated Creatinine Clearance 49 ml/min; Glucose 97 mg/dl (70-99); Potassium 4.4 mmol/L (3.5-5.1); Sodium 135 mmol/L (135-145); eGFR 51.45
--- NOTE | 2025-04-28 08:16 | W.PN.CARDCBS ---
Addendum entered and electronically signed by Monet Vergara MD 04/28/25 10:24:
I saw and examined the patient.
The Dcs Engineer's note was reviewed and I agree with the note.
Comment: He did well overnight. He has no new symptoms. Device site feels a little tender. No obvious swelling. Bandage in place.
Blood pressure has been elevated. Medications altered. Continue to follow.
- engine monitor stable.
- Pacemaker site intact stable.
- Blood pressure medications altered with goal less than 130/85, continue to follow as an outpatient on change in medications
Stable from a cardiac point of view for discharge with follow-up which will be arranged.
Original Note:
Today's Communication / Plan
-
Adding hydralazine 25 mg BID for HTN
Nephrology following for YURIY
Patient now also receiving treatment for UTI
Cardiology follow-up arranged
Impression / Plan
-
PCP: Dr. Hood
Cardiology: Dr. Peterson, last seen as a preop consultation 12/31/2022
Impression:
Presented with fatigue and exertional intolerance, new finding of complete heart block 04/25/2025
s/p Medtronic DC PPM for complete heart block on 04/26/2025
YURIY
Hyperkalemia
EtOH use disorder
AMBROSE on CPAP
Bipolar depression
HTN
Hyperlipidemia
Stress echo 04/18/2021: Completed 9 minutes of a modified Huber protocol for total of 4.6 METS of activity and reached 82% of MPHR, intermediate risk stress test based on poor exercise tolerance, but stress echo imaging without obvious abnormality
Echo 04/26/2025: Normal LV size and function, EF 65%, mild , mild MR, when compared to June 2014, mild was also noted at that time.
Plan:
-Patient admitted with new diagnosis of complete heart block and YURIY 04/25/2025. Patient had PPM placed 04/26/2025.
-Patient with new diagnosis of complete heart block on admission 04/25/2025. No obvious reversible cause at time of admission, Lyme serology pending. Patient had successful implant of Medtronic DC PPM 04/26/2025. Normal device and lead function
on post implant check 04/27/2025.
-Activity limitations and limb restrictions reviewed with patient [id number] and in writing on discharge instructions. Incision check and device follow-up arranged with cardiology office.
-Nephrology following for YURIY. Patient was given Lasix 40 mg IV x 1 on 04/27/2025 to help force diuresis, but no evidence of acute HF. Patient was not taking a diuretic prior to admission. EF preserved at 65% with only mild and mild MR by echo
04/26/2025, report reviewed by me.
-Cre as high as 1.9 on admission and then improved to 1.4 on 04/28/2025, labs reviewed by me
-Patient is now also being treated for urine retention with the addition of Flomax and Rocephin for UTI
-Outpatient dose of Cardura 8 mg qHS was held on admission and then resumed on 04/27/2025
-Outpatient dose of amlodipine 5 mg daily has been continued
-Outpatient dose of ramipril 10 mg daily remains on hold due to YURIY
-Patient remains HTN much of the time, would consider adding hydralazine 25 mg BID, orders placed by me
-Cardiology follow-up arranged
HPI: Patient came to the ER today, his birthday, with 2 weeks worth of fatigue and exertional intolerance and was found to be in new complete heart block and cardiology has been consulted. Patient says that he started to feel tired 2 weeks ago and
did not have his usual energy. He saw his PCP on 04/12/2025 and HR at that time was 95 with a BP of 128/64. Patient was not sure if some of his symptoms were related to his underlying depression for which he takes trazodone, Effexor or and
Wellbutrin plus Klonopin as needed as well, but then in the last 2 weeks his fatigue got even worse and did not seem like his usual depression. When he saw his PCP he was referred to physical therapy and when he arrived to PT today his heart rate
was in the 30s and he was referred to the ER. He denies any chest pain or SOB. He denies any edema. He says he has never had a problem like this before.
Progress Note - Money Room Supervisor
Subjective
Date of Service: April 28, 2025
He feels well, he says he didn't sleep well and is sleeping in today
Objective
Labs:
04/28/25 04:06
04/28/25 04:06
Labs
Hgb 10.1 g/dL (13.0-18.0) L 04/28/25 04:06
Hct 31.0 % (39.0-52.0) L 04/28/25 04:06
Plt Count 126 10^3/uL (130-400) L 04/28/25 04:06
Sodium 135 mmol/L (135-145) 04/28/25 04:06
Potassium 4.4 mmol/L (3.5-5.1) 04/28/25 04:06
BUN 59 mg/dl (9-20) H 04/28/25 04:06
Creatinine 1.4 mg/dL (0.7-1.3) H 04/28/25 04:06
Glucose 97 mg/dl (70-99) 04/28/25 04:06
Troponins
04/25/25 04/25/25 04/26/25
16:49 22:17 03:14
Troponin I 0.049 H* 0.046 H* 0.044 H*
04/26/25
09:17
Troponin I Cancelled
Vital Signs and I&O:
Vital Signs
Temp Pulse Resp BP Pulse Ox
97.2 F 69 20 156/58 94
04/28/25 07:32 04/28/25 06:00 04/28/25 07:32 04/28/25 04:04 04/28/25 07:32
Vital Signs
Temp Pulse Resp BP Pulse Ox
97.2 F 69 20 156/58 94
04/28/25 07:32 04/28/25 06:00 04/28/25 07:32 04/28/25 04:04 04/28/25 07:32
Intake & Output
04/26/25 04/27/25 04/28/25 04/29/25
06:59 06:59 06:59 06:59
Intake Total 1480 / 1480 920 / 920 2835 / 2835
Output Total 900 / 900 720 / 720 2860 / 2860
Balance 580 / 580 200 / 200 -25 / -25
Physical Exam
Physical Exam
GEN: NAD, AAO x 3, sleeping initially but awakens to answer questions and then falls back to sleep
LUNGS: RA. CTA B/L, no wheeze
CV: V paced on telemetry. Left ACW covered with Aquacel dressing and no obvious drainage or hematoma
EXT: No edema B/L LE
NEURO: Gross non-focal
SKIN: No rash
[2025-04-28] MEDS: FOLVITE 1 MG PO (09:16)
[2025-04-28] MEDS: NORVASC 5 MG PO (09:17)
[2025-04-28] MEDS: WELLBUTRIN XL (24 hour extended release) 150 MG PO (09:17)
[2025-04-28] MEDS: EFFEXOR XR 150 MG PO (09:17)
[2025-04-28] MEDS: FLOMAX 0.4 MG PO (09:17)
[2025-04-28] MEDS: LIPITOR 40 MG PO (09:17)
[2025-04-28] MEDS: EFFEXOR XR 75 MG PO (09:17)
[2025-04-28] MEDS: THIAMINE INJECTION 200 MG IV ×2 (09:18→20:34)
[2025-04-28] MEDS: HEPARIN 5000 UNITS SC ×2 (09:18→14:44)
[2025-04-28 10:33] LABS: Lyme Antibody Screen, EIA Presump. Positive (Negative)
[2025-04-28] MEDS: APRESOLINE 25 MG PO ×2 (10:41→20:33)
--- NOTE | 2025-04-28 11:55 | W.PN.NEPH.PH ---
Today's Communication / Plan
-
observe off IVF
Assessment/Plan
-
Impression:
Acute kidney injury (1.7)-baseline cr 1 in December 2024
Hyperkalemia
Symptomatic bradycardia
History of anxiety
Hypertension history
Dyslipidemia
Daily NSAID use for chronic back pain
Diabetes (diet controlled)
Plan:
YURIY: UA with UTI sample but cx neg,
U na is low suggest prerenal in nature with bradycardia+use of NSAIDs
Renal US non acute however required SC last night 500cc, RIVERA changes
cotn bladder scan and SC as needed-cotn flomax, finasteride, has f/u Dr Bland soon
cr better today-stay off IVF
hyperkalemia-resolved
BP increasing trend, meds adjusted per cards, cont to hold ACEI , echo normal EF, mild
once cr returns to normal can resume ACEI
BNP is high but in setting of YURIY, hard to assess vol status clinically
no edema noted currently
d/w pt and at bedside in detail
d/w primary
-
-
Date of Service: April 28, 2025
CC / HPI / ROS
-
Chief Complaint:
YURIY, hyperkalemia
History of Present Illness:
cr better at 1.4, k normal
BUN better at 59
SC frequently
BP stable
Review of Systems:
no cp or sob
more sleepy today, did not use CPAP
Labs
-
Labs:
WBC 7.0 10^3/uL (4.8-10.8) 04/28/25 04:06
RBC 3.16 10^6/uL (4.70-6.10) L 04/28/25 04:06
Hgb 10.1 g/dL (13.0-18.0) L 04/28/25 04:06
Hct 31.0 % (39.0-52.0) L 04/28/25 04:06
Plt Count 126 10^3/uL (130-400) L 04/28/25 04:06
Sodium 135 mmol/L (135-145) 04/28/25 04:06
Potassium 4.4 mmol/L (3.5-5.1) 04/28/25 04:06
Chloride 108 mmol/L (98-107) H 04/28/25 04:06
Carbon Dioxide 26 mmol/L (22-30) 04/28/25 04:06
BUN 59 mg/dl (9-20) H 04/28/25 04:06
Creatinine 1.4 mg/dL (0.7-1.3) H 04/28/25 04:06
eGFR 51.45 04/28/25 04:06
Glucose 97 mg/dl (70-99) 04/28/25 04:06
Calcium 7.8 mg/dl (8.4-10.2) L 04/28/25 04:06
Mnq-A-Xqeaqtvsjwo Pept 4700 pg/ml 04/27/25 04:30
Albumin 3.7 g/dl (3.5-5.0) 04/25/25 16:49
Physical Exam
-
Vital Signs:
Vital Signs
Temp Pulse Resp BP Pulse Ox
98.2 F 67 18 161/61 96
04/28/25 11:27 04/28/25 11:27 04/28/25 11:27 04/28/25 07:32 04/28/25 11:27
Cardiovascular:: Regular rate and rhythm
Respiratory:: Bilateral: CTA (decreased BS)
Lung Excursion:: Normal
Abdomen:: Nontender and Soft
Extremity Edema:: None: Bilateral:
Calvillo Catheter: No
[2025-04-28 12:28] LABS: B.E. 5.0 mmol/L; HCO3 29.1 mmol/L (21-28); O2 Saturation % 99.9 % (94-98); PCO2 40 mmHg (35-48); PO2 80 mmHg (83-108)
--- NOTE | 2025-04-28 12:34 | RESPNOTE ---
Pt found on CPAP. CPAP was not placed on patient by respiratory therapist. Pt stated 'a doctor placed this on me about an hour ago and said I had to wear it'. Pt resting comfortably and tolerating CPAP well at this time.
--- NOTE | 2025-04-28 12:42 | W.PN.HOSP.TC ---
Today's Communication/Plan
-
Monitor vitals
See plan
Monitor mental status
Hydralazine, continue Motifene
Bladder scan
Administer Calvillo if continues to retain
Discussed with RN, spouse
Add Proscar, continue Flomax
Antibiotic
Assessment / Plan
Assessment / Plan
General: Well Developed, Well Nourished, No Apparent Distress
HEENT: NormoCephalic, PERRLA
Respiratory: Clear and Non Labored Respirations; No Wheezes
Cardiac: S1/S2 and Regular paced Rhythm
GI: Soft, Non Tender, Non Distended and Normal Bowel Sounds
Musculoskeletal: No Edema
Neuro: Awake and AO x 3
Psych: Calm
generalized weakness likely 2/2 complete heart block
trop 0.049, pBNP 5110
EKG: Critical Test Result: Low HR , AV Block
SINUS RHYTHM WITH COMPLETE HEART BLOCK AND IDIOVENTRICULAR RHYTHM
LEFT AXIS DEVIATION
RIGHT BUNDLE BRANCH BLOCK
MINIMAL VOLTAGE CRITERIA FOR LVH, MAY BE NORMAL VARIANT ( R in aVL )
Cardiology following, status post dual-chamber pacemaker 04/26. Patient to follow with cardiology outpatient
Echo 04/26 with EF 65%, mild
Lyme studies with presumptive positive, less than blood pending
TSH wnl
Mild troponin elevation likely secondary to complete heart block
Monitor
alcohol use disorder
Appears to be having mild alcohol withdrawal. Required Ativan
reports 3 rum and cokes daily
- MSAS protocol
#hyperkalemia
Monitor
Resolved
#acute kidney injury
Metabolic acidosis
Creatinine 1.4, improving
- monitor BMP
- hold ramipril
Nephrology following
Bladder scan with retention, administer Calvillo catheter. Continue with Flomax. Add Proscar. stop Cardura. sees urologist outpatient
Volume status difficult to assess, elevated proBNP however no clear signs of CHF. Nephrology trying fluids with Lasix
change in mental suspect possibility of acute on chronic
No slurred speech, aphasia
ABG without hypercarbia
Will hold trazodone. Continue with Klonopin for now
Discussed with spouse and she also noted memory impairment lately. Suspect likely progressing towards cognitive impairment/dementia
No signs of hallucination
Urinary tract infection
Switch antibiotic to cefdinir.
Urine culture no growth however he had symptoms of UTI with dysuria,increase frequency
Thrombocytopenia
Monitor
Acute urinary retention
Bladder scan, straight cath as needed
hypertension
Hypertensive urgency on admission
- hold ramipril
- start amlodipine, also on hydralazine
hyperlipidemia
- continue atorvastatin
type 2 diabetes
a1c 6.3
reports is diet controlled
- monitor for hypo/hyper glycemia
bipolar depression
- continue bupropion and venlafaxine
#AMBROSE
on CPAP at night
- CPAP PRN and HS. Appears to be noncompliant at times
Code status: full code
DVT prophylaxis: heparin sq
I spent a total of 52 minutes with the patient or on the floor. More than 50% of this time involved counseling and coordination of care.
Anticipated Discharge: > 48 hours
Subjective/Interval History
-
Date of Service: April 28, 2025
Denies pain
Objective Data
-
Labs:
Laboratory Results
04/28/25 04/28/25
04:06 12:20
WBC 7.0
Hgb 10.1 L
Hct 31.0 L
Plt Count 126 L
HCO3 29.1 H
Sodium 135
Potassium 4.4
Chloride 108 H
Carbon Dioxide 26
BUN 59 H
Creatinine 1.4 H
Glucose 97
Calcium 7.8 L
Vital Signs:
Vital Signs
Temp Pulse Resp BP Pulse Ox
98.2 F 67 18 161/61 96
04/28/25 11:27 04/28/25 11:27 04/28/25 11:27 04/28/25 07:32 04/28/25 11:27
I&O
04/27/25 04/28/25 04/29/25
06:59 06:59 06:59
Intake Total 920 / 920 2835 / 2835
Output Total 720 / 720 2860 / 2860 150 / 150
Balance 200 / 200 -25 / -25 -150 / -150
[2025-04-28 13:07] LABS: Glucose - Point of Care 118 mg/dl (70-99)
[2025-04-28] MEDS: APRESOLINE 5 MG IV (13:07)
[2025-04-28] MEDS: OMNICEF 300 MG PO ×2 (14:44→20:34)
--- NOTE | 2025-04-28 17:24 | PTCARENOTE ---
Pt was falling asleep during conversation and difficult to stay awake all morning. Dr Penny was notified by tt @ 1130. ABG ordered. Pt was bladder scanned for 515 ml. Pt did urinate [address] Penny at beside to eval. After discussion cerda order on
hold to see if pt will continue to urinate on his own. Repeat bladder scan @ [address] Penny aware and ok to place cerda. Pt was more awake this afternoon able to eat lunch and dinner.
--- NOTE | 2025-04-28 18:14 | PTCARENOTE ---
Calvillo was placed due to acute urinary retention. 16 Fr Latex- free catheter was inserted without difficulty and sterile field maintained during insertion. Stat lock was placed. Green color urine draining.
[2025-04-28] MEDS: KLONOPIN 2 MG PO (22:03)
[2025-04-29] VITALS (10 sets, daily range): BP systolic 150–172; BP diastolic 53–121; PULSE 69; BMI 35.2
[2025-04-29] MEDS: HEPARIN 5000 UNITS SC ×4 (00:47→23:18)
[2025-04-29 05:31] LABS: Hematocrit 32.5 % (39.0-52.0); Hemoglobin 10.9 g/dL (13.0-18.0); Mean Corp Hgb Conc. 33.5 g/dL (33.0-37.0); Mean Corpuscular Volume 99.7 fL (80.0-94.0); Nucleated Red Blood Cells % 0 % (-); Platelet Count 132 10^3/uL (130-400); Red Cell Dist. Width 11.5 % (11.5-14.5)
[2025-04-29 05:49] LABS: Blood Urea Nitrogen 35 mg/dl (9-20); Calcium 8.3 mg/dl (8.4-10.2); Carbon Dioxide 27 mmol/L (22-30); Chloride 109 mmol/L (98-107); Estimated Creatinine Clearance 68 ml/min; Glucose 96 mg/dl (70-99); Potassium 4.4 mmol/L (3.5-5.1); Sodium 136 mmol/L (135-145); eGFR > 60.00
[2025-04-29] MEDS: NORVASC 5 MG PO ×2 (07:49→12:12)
[2025-04-29] MEDS: LIPITOR 40 MG PO (07:49)
[2025-04-29] MEDS: PROSCAR 5 MG PO (07:49)
[2025-04-29] MEDS: WELLBUTRIN XL (24 hour extended release) 150 MG PO (07:49)
[2025-04-29] MEDS: EFFEXOR XR 150 MG PO (07:49)
[2025-04-29] MEDS: EFFEXOR XR 75 MG PO (07:49)
[2025-04-29] MEDS: FOLVITE 1 MG PO (07:49)
[2025-04-29] MEDS: FLOMAX 0.4 MG PO (07:50)
[2025-04-29] MEDS: OMNICEF 300 MG PO ×2 (07:50→19:57)
[2025-04-29] MEDS: THIAMINE INJECTION 200 MG IV (07:50)
[2025-04-29] MEDS: APRESOLINE 25 MG PO ×2 (07:50→19:57)
--- NOTE | 2025-04-29 11:18 | W.PN.NEPH.PH ---
Today's Communication / Plan
-
stable for discharge
Assessment/Plan
-
Impression:
Acute kidney injury (1.7)-baseline cr 1 in December 2024
Hyperkalemia
Symptomatic bradycardia
History of anxiety
Hypertension history
Dyslipidemia
Daily NSAID use for chronic back pain
Diabetes (diet controlled)
Plan:
YURIY: UA with UTI sample but cx neg,
U na is low suggest prerenal in nature with bradycardia+use of NSAIDs
Renal US non acute however required SC last night 500cc, RIVERA changes
Maintain Calvillo catheter to rehab
cr better today-stay off IVF
hyperkalemia-resolved
BP increasing trend, meds adjusted per cards, cont to hold ACEI , echo normal EF, mild
once cr returns to normal can resume ACEI
no edema noted currently
clear for discharge from renal perspective
-
-
Date of Service: April 29, 2025
CC / HPI / ROS
-
Chief Complaint:
YURIY, hyperkalemia
History of Present Illness:
cr better at 1.0, k normal
SC frequently
BP stable
Review of Systems:
no cp or sob
more sleepy today, did not use CPAP
Labs
-
Labs:
WBC 6.4 10^3/uL (4.8-10.8) 04/29/25 05:13
RBC 3.26 10^6/uL (4.70-6.10) L 04/29/25 05:13
Hgb 10.9 g/dL (13.0-18.0) L 04/29/25 05:13
Hct 32.5 % (39.0-52.0) L 04/29/25 05:13
Plt Count 132 10^3/uL (130-400) 04/29/25 05:13
Sodium 136 mmol/L (135-145) 04/29/25 05:13
Potassium 4.4 mmol/L (3.5-5.1) 04/29/25 05:13
Chloride 109 mmol/L (98-107) H 04/29/25 05:13
Carbon Dioxide 27 mmol/L (22-30) 04/29/25 05:13
BUN 35 mg/dl (9-20) H 04/29/25 05:13
Creatinine 1.0 mg/dL (0.7-1.3) 04/29/25 05:13
eGFR > 60.00 04/29/25 05:13
Glucose 96 mg/dl (70-99) 04/29/25 05:13
Calcium 8.3 mg/dl (8.4-10.2) L 04/29/25 05:13
Uvw-Q-Gqhrysbuqeu Pept 4700 pg/ml 04/27/25 04:30
Albumin 3.7 g/dl (3.5-5.0) 04/25/25 16:49
Physical Exam
-
Vital Signs:
Vital Signs
Temp Pulse Resp BP Pulse Ox
98.4 F 64 20 172/69 97
04/29/25 07:16 04/29/25 07:15 04/29/25 07:16 04/29/25 07:15 04/29/25 07:16
Cardiovascular:: Regular rate and rhythm
Respiratory:: Bilateral: CTA (decreased BS)
Lung Excursion:: Normal
Abdomen:: Nontender and Soft
Extremity Edema:: None: Bilateral:
Calvillo Catheter: No
--- NOTE | 2025-04-29 11:46 | W.PN.HOSP.TC ---
Today's Communication/Plan
-
monitor vitals
see plan
monitor mental status closely
monitor renal function
maintain cerda
increase amlodipine
cw proscar,flomax
cw hydralazine
hopeful dc tomorrow
Continue to hold trazodone
Assessment / Plan
Assessment / Plan
General: Well Developed, Well Nourished, No Apparent Distress
HEENT: NormoCephalic, PERRLA
Respiratory: Clear and Non Labored Respirations; No Wheezes
Cardiac: S1/S2 and Regular paced Rhythm
GI: Soft, Non Tender, Non Distended and Normal Bowel Sounds
: +cerda
Musculoskeletal: No Edema
Neuro: Awake and AO x 3
Psych: Calm
generalized weakness likely 2/2 complete heart block
trop 0.049, pBNP 5110
EKG: Critical Test Result: Low HR , AV Block
SINUS RHYTHM WITH COMPLETE HEART BLOCK AND IDIOVENTRICULAR RHYTHM
LEFT AXIS DEVIATION
RIGHT BUNDLE BRANCH BLOCK
MINIMAL VOLTAGE CRITERIA FOR LVH, MAY BE NORMAL VARIANT ( R in aVL )
Cardiology following, status post dual-chamber pacemaker 04/26. Patient to follow with cardiology outpatient
Echo 04/26 with EF 65%, mild
Lyme studies with presumptive positive, western blot pending pending
TSH wnl
Mild troponin elevation likely secondary to complete heart block
Monitor
alcohol use disorder
Appears to be having mild alcohol withdrawal. Required Ativan
reports 3 rum and cokes daily
- MSAS protocol
#hyperkalemia
Monitor
Resolved
#acute kidney injury
Metabolic acidosis
creat now improving
- monitor BMP
- hold ramipril
Nephrology following
Now with Cerda catheter after acute retention. Continue with Flomax. Add Proscar. stop Cardura. sees urologist outpatient
Volume status difficult to assess, elevated proBNP however no clear signs of CHF. Nephrology trying fluids with Lasix
change in mental suspect possibility of acute on chronic
No slurred speech, aphasia
ABG without hypercarbia
Will hold trazodone. Continue with Klonopin for now
Discussed with spouse and she also noted memory impairment lately. Suspect likely progressing towards cognitive impairment/dementia
No signs of hallucination
Urinary tract infection
Switch antibiotic to cefdinir.
Urine culture no growth however he had symptoms of UTI with dysuria,increase frequency
Thrombocytopenia
Monitor
Acute urinary retention
Bladder scan, straight cath as needed
hypertension
Hypertensive urgency on admission
- hold ramipril
- start amlodipine, also on hydralazine
hyperlipidemia
- continue atorvastatin
type 2 diabetes
a1c 6.3
reports is diet controlled
- monitor for hypo/hyper glycemia
bipolar depression
- continue bupropion and venlafaxine
Hold trazodone
#AMBROSE
on CPAP at night
- CPAP PRN and HS. Appears to be noncompliant at times
Code status: full code
DVT prophylaxis: heparin sq
Anticipated Discharge: Within 24 hours
Subjective/Interval History
-
Date of Service: April 29, 2025
denies pain
Objective Data
-
Labs:
Laboratory Results
04/29/25
05:13
WBC 6.4
Hgb 10.9 L
Hct 32.5 L
Plt Count 132
Sodium 136
Potassium 4.4
Chloride 109 H
Carbon Dioxide 27
BUN 35 H
Creatinine 1.0
Glucose 96
Calcium 8.3 L
Vital Signs:
Vital Signs
Temp Pulse Resp BP Pulse Ox
98.1 F 64 18 172/69 95
04/29/25 11:25 04/29/25 07:15 04/29/25 11:25 04/29/25 07:15 04/29/25 11:25
I&O
04/28/25 04/29/25 04/30/25
06:59 06:59 06:59
Intake Total 2835 / 2835 120 / 120
Output Total 2860 / 2860 2024 275 / 275
Balance -25 / -25 -1905 / -190 -275 / -275
--- NOTE | 2025-04-29 12:17 | VATNOTE ---
Area of infiltrate in R arm appeared bruised without swelling. Pt appreciates minor soreness but nothing beyond that of ordinary bruising. Pt states it seems better. Considered resolved at this time.
--- NOTE | 2025-04-29 12:37 | PN.CDI ---
CDI
- -
CDI:
Physician Documentation Request
Admit Date: 04/25/25 19:15
Dear Doctor Zohaib,
Progress note states 'Mild troponin elevation likely secondary to complete heart block'
Please further clarify the diagnosis associated with the elevated troponin:
Nonischemic myocardial injury
Type II AR - demand ischemia
Other
Use of terms such as suspected, likely, concern for, or probable (associated with a specific diagnosis that is being evaluated, monitored, or treated as if it exists) are acceptable and can be coded in the inpatient setting, when documented at the
time of discharge.
Thank you,
Emily Ruiz RN, BSN
CDI Specialist
tiger text
Please use your independent medical judgment in providing your response.
--- NOTE | 2025-04-29 14:26 | CM ---
spoke to pt in room, called at home/LM, [facility] will not have a bed for him until friday. pt agreeable to this plan. hospitalist aware.
[2025-04-29] MEDS: VITAMIN B1 100 MG PO (19:57)
[2025-04-29] MEDS: KLONOPIN 2 MG PO (22:18)
[2025-04-30] VITALS (11 sets, daily range): BP systolic 133–162; BP diastolic 59–123; BMI 35.1
[2025-04-30 05:03] LABS: Hematocrit 31.8 % (39.0-52.0); Hemoglobin 11.0 g/dL (13.0-18.0); Mean Corp Hgb Conc. 34.6 g/dL (33.0-37.0); Mean Corpuscular Volume 95.8 fL (80.0-94.0); Nucleated Red Blood Cells % 0 % (-); Platelet Count 134 10^3/uL (130-400); Red Cell Dist. Width 11.5 % (11.5-14.5)
[2025-04-30 05:22] LABS: Blood Urea Nitrogen 24 mg/dl (9-20); Calcium 8.3 mg/dl (8.4-10.2); Carbon Dioxide 27 mmol/L (22-30); Chloride 107 mmol/L (98-107); Estimated Creatinine Clearance 74 ml/min; Glucose 96 mg/dl (70-99); Potassium 4.3 mmol/L (3.5-5.1); Sodium 136 mmol/L (135-145); eGFR > 60.00
--- NOTE | 2025-04-30 06:41 | PTCARENOTE ---
Pt V paced on monitor, VSS. Pt denies pain. Left chest surgical side with dsg CDI. Pt ambulates with x 1 assist and RW. Call lin within reach
[2025-04-30] MEDS: LIPITOR 40 MG PO (08:38)
[2025-04-30] MEDS: VITAMIN B1 100 MG PO ×2 (08:38→20:15)
[2025-04-30] MEDS: FLOMAX 0.4 MG PO (08:38)
[2025-04-30] MEDS: EFFEXOR XR 150 MG PO (08:38)
[2025-04-30] MEDS: WELLBUTRIN XL (24 hour extended release) 150 MG PO (08:38)
[2025-04-30] MEDS: EFFEXOR XR 75 MG PO (08:39)
[2025-04-30] MEDS: NORVASC 10 MG PO (08:39)
[2025-04-30] MEDS: APRESOLINE 25 MG PO ×2 (08:42→20:15)
[2025-04-30] MEDS: FOLVITE 1 MG PO (08:42)
[2025-04-30] MEDS: OMNICEF 300 MG PO ×2 (08:42→20:15)
[2025-04-30] MEDS: HEPARIN 5000 UNITS SC ×3 (08:43→23:08)
[2025-04-30] MEDS: PROSCAR 5 MG PO (08:43)
--- NOTE | 2025-04-30 11:47 | W.PN.NEPH.PH ---
Today's Communication / Plan
-
Sign off
Assessment/Plan
-
Impression:
Acute kidney injury (1.7)-baseline cr 1 in December 2024
Hyperkalemia
Symptomatic bradycardia
History of anxiety
Hypertension history
Dyslipidemia
Daily NSAID use for chronic back pain
Diabetes (diet controlled)
Plan:
YURIY: UA with UTI sample but cx neg,
U na is low suggest prerenal in nature with bradycardia+use of NSAIDs
Renal US non acute however required SC last night 500cc, RIVERA changes
Maintain Calvillo catheter to rehab
YURIY result
hyperkalemia-resolved
BP increasing trend, meds adjusted per cards, cont to hold ACEI , echo normal EF, mild
once cr returns to normal can resume ACEI
no edema noted currently
clear for discharge from renal perspective
We will sign off
-
-
Date of Service: April 30, 2025
CC / HPI / ROS
-
Chief Complaint:
YURIY, hyperkalemia
History of Present Illness:
cr better at 0.9, k normal
SC frequently
BP stable
Review of Systems:
no cp or sob
more sleepy today, did not use CPAP
Labs
-
Labs:
WBC 7.7 10^3/uL (4.8-10.8) 04/30/25 04:16
RBC 3.32 10^6/uL (4.70-6.10) L 04/30/25 04:16
Hgb 11.0 g/dL (13.0-18.0) L 04/30/25 04:16
Hct 31.8 % (39.0-52.0) L 04/30/25 04:16
Plt Count 134 10^3/uL (130-400) 04/30/25 04:16
Sodium 136 mmol/L (135-145) 04/30/25 04:16
Potassium 4.3 mmol/L (3.5-5.1) 04/30/25 04:16
Chloride 107 mmol/L (98-107) 04/30/25 04:16
Carbon Dioxide 27 mmol/L (22-30) 04/30/25 04:16
BUN 24 mg/dl (9-20) H 04/30/25 04:16
Creatinine 0.9 mg/dL (0.7-1.3) 04/30/25 04:16
eGFR > 60.00 04/30/25 04:16
Glucose 96 mg/dl (70-99) 04/30/25 04:16
Calcium 8.3 mg/dl (8.4-10.2) L 04/30/25 04:16
Eoa-A-Xnpctgqdnau Pept 4700 pg/ml 04/27/25 04:30
Albumin 3.7 g/dl (3.5-5.0) 04/25/25 16:49
Physical Exam
-
Vital Signs:
Vital Signs
Temp Pulse Resp BP Pulse Ox
98.2 F 69 18 158/72 95
04/30/25 07:48 04/30/25 08:39 04/30/25 07:48 04/30/25 08:39 04/30/25 09:09
Cardiovascular:: Regular rate and rhythm
Extremity Edema:: None: Bilateral:
Calvillo Catheter: No
--- NOTE | 2025-04-30 12:42 | W.PN.HOSP.TC ---
Today's Communication/Plan
-
Monitor vital signs see plan
SNF placement tomorrow
Monitor renal function
Continue with antibiotic
Monitor mental status
Assessment / Plan
Assessment / Plan
General: Well Developed, Well Nourished, No Apparent Distress
HEENT: NormoCephalic, PERRLA
Respiratory: Clear and Non Labored Respirations; No Wheezes
Cardiac: S1/S2 and Regular paced Rhythm
GI: Soft, Non Tender, Non Distended and Normal Bowel Sounds
: +cerda
Musculoskeletal: No Edema
Neuro: Awake and AO x 3
Psych: Calm
generalized weakness likely 2/2 complete heart block
trop 0.049, pBNP 5110
Cardiology following, status post dual-chamber pacemaker 04/26. Patient to follow with cardiology outpatient
Echo 04/26 with EF 65%, mild
Lyme studies with presumptive positive, western blot pending pending
TSH wnl
Mild troponin elevation likely secondary to type 2 [place] 2/2 complete heart block
Monitor
s/p pacemaker
Cardiology follow-up outpatient
alcohol use disorder
Appears to be having mild alcohol withdrawal. Required Ativan
reports 3 rum and cokes daily
- MSAS protocol
Now improved
#hyperkalemia
Monitor
Resolved
#acute kidney injury
Metabolic acidosis
creat now improving
- monitor BMP
- hold ramipril
Nephrology following
Now with Cerda catheter after acute retention. Continue with Flomax. Add Proscar. stopped Cardura. sees urologist outpatient
change in mental suspect possibility of acute on chronic
No slurred speech, aphasia
ABG without hypercarbia
Will hold trazodone. Continue with Klonopin for now
Discussed with spouse and she also noted memory impairment lately. Suspect likely progressing towards cognitive impairment/dementia
No signs of hallucination
Urinary tract infection
Switch antibiotic to cefdinir.
Urine culture no growth however he had symptoms of UTI with dysuria,increase frequency
Thrombocytopenia
Monitor
Acute urinary retention
Bladder scan, straight cath as needed
hypertension
Hypertensive urgency on admission
- hold ramipril
- start amlodipine, also on hydralazine
hyperlipidemia
- continue atorvastatin
type 2 diabetes
a1c 6.3
reports is diet controlled
- monitor for hypo/hyper glycemia
bipolar depression
- continue bupropion and venlafaxine
Hold trazodone
#AMBROSE
on CPAP at night
- CPAP PRN and HS. Appears to be noncompliant at times
Code status: full code
DVT prophylaxis: heparin sq
Anticipated Discharge: Within 24 hours
Subjective/Interval History
-
Date of Service: April 30, 2025
Denies pain
Objective Data
-
Labs:
Laboratory Results
04/30/25
04:16
WBC 7.7
Hgb 11.0 L
Hct 31.8 L
Plt Count 134
Sodium 136
Potassium 4.3
Chloride 107
Carbon Dioxide 27
BUN 24 H
Creatinine 0.9
Glucose 96
Calcium 8.3 L
Vital Signs:
Vital Signs
Temp Pulse Resp BP Pulse Ox
98.2 F 69 18 158/72 95
04/30/25 07:48 04/30/25 08:39 04/30/25 07:48 04/30/25 08:39 04/30/25 09:09
I&O
04/29/25 04/30/25 05/01/25
06:59 06:59 06:59
Intake Total 120 / 120 480 / 480
Output Total 2024
Balance -1905 / -1905 -1520 / -1520
--- NOTE | 2025-04-30 13:56 | PTCARENOTE ---
PT OOB to chair, ambulated in room x1 with RW. Remains V paced. Awaiting SNF bed tomorrow. No change in physical assessment. CB in reach- reminded to use.
[2025-04-30 15:50] LABS: Lyme Ab Western Blot IgG Negative (Negative); Lyme Ab Western Blot IgM Negative (Negative)
--- NOTE | 2025-04-30 18:27 | PTCARENOTE ---
assumed care of pt. pt is paced on the monitor, hr in the 80s, vss. pt offers no complaints at this time. pt napping on and off. pt resting in bed comfortably. pt educated on plan of care and pt verbalized understanding. call lin within reach.
[2025-04-30] MEDS: FLUSH (NSS) 1 FLUSH IV (20:19)
[2025-04-30] MEDS: KLONOPIN 2 MG PO (22:24)
[2025-05-01] VITALS (7 sets, daily range): BP systolic 102–171; BP diastolic 67–115; PULSE 76; BMI 34.1
--- NOTE | 2025-05-01 05:18 | PTCARENOTE ---
Patient V paced throughout shift. HRR, Breath sounds are decreased at the bases. Sat 97% on room air. Ax1 to BR +BM. Patient sleeping intermittently throughout shift. Patient offers no complaints.
[2025-05-01 05:30] LABS: Hematocrit 32.6 % (39.0-52.0); Hemoglobin 11.1 g/dL (13.0-18.0); Mean Corp Hgb Conc. 34.0 g/dL (33.0-37.0); Mean Corpuscular Volume 97.0 fL (80.0-94.0); Nucleated Red Blood Cells % 0 % (-); Platelet Count 135 10^3/uL (130-400); Red Cell Dist. Width 11.4 % (11.5-14.5)
[2025-05-01 05:34] LABS: Blood Urea Nitrogen 16 mg/dl (9-20); Calcium 8.3 mg/dl (8.4-10.2); Carbon Dioxide 26 mmol/L (22-30); Chloride 107 mmol/L (98-107); Estimated Creatinine Clearance 84 ml/min; Glucose 106 mg/dl (70-99); Potassium 4.3 mmol/L (3.5-5.1); Sodium 136 mmol/L (135-145); eGFR > 60.00
--- NOTE | 2025-05-01 08:00 | PTCARENOTE ---
Assumed care of pt from prev nsg shift; Pt AAOX3 w/no c/o CP or SOB. Pt w/VSS w/HR in the 60's-70's & BP 171/67 this AM. Pt has had elevated BP's during this admission & MDs are aware. Pt is 100% V-paced on telemetry monitoring. Plan of care
discussed w/pt & pt verbalized understanding. Call lin within reach & plan of care ongoing.
[2025-05-01] MEDS: EFFEXOR XR 75 MG PO (10:12)
[2025-05-01] MEDS: FLOMAX 0.4 MG PO (10:12)
[2025-05-01] MEDS: VITAMIN B1 100 MG PO (10:12)
[2025-05-01] MEDS: EFFEXOR XR 150 MG PO (10:12)
[2025-05-01] MEDS: NORVASC 10 MG PO (10:12)
[2025-05-01] MEDS: WELLBUTRIN XL (24 hour extended release) 150 MG PO (10:12)
[2025-05-01] MEDS: OMNICEF 300 MG PO (10:13)
[2025-05-01] MEDS: APRESOLINE 25 MG PO (10:13)
[2025-05-01] MEDS: LIPITOR 40 MG PO (10:13)
[2025-05-01] MEDS: HEPARIN 5000 UNITS SC (10:13)
[2025-05-01] MEDS: PROSCAR 5 MG PO (10:13)
[2025-05-01] MEDS: FOLVITE 1 MG PO (10:14)
[2025-05-01] MEDS: TYLENOL 650 MG PO (10:18)
--- NOTE | 2025-05-01 10:41 | W.PN.HOSP.TC ---
Today's Communication/Plan
-
Monitor vital signs see plan
Continue with antibiotic
Voiding trial at SNF
Discharge today to rehab
Cardiology follow-up outpatient
Time of discharge 38 minutes
Assessment / Plan
Assessment / Plan
General: Well Developed, Well Nourished, No Apparent Distress
HEENT: NormoCephalic, PERRLA
Respiratory: Clear and Non Labored Respirations; No Wheezes
Cardiac: S1/S2 and Regular paced Rhythm
GI: Soft, Non Tender, Non Distended and Normal Bowel Sounds
: +cerda
Musculoskeletal: No Edema
Neuro: Awake and AO x 3
Psych: Calm
generalized weakness likely 2/2 complete heart block
trop 0.049, pBNP 5110
Cardiology following, status post dual-chamber pacemaker 04/26. Patient to follow with cardiology outpatient
Echo 04/26 with EF 65%, mild
Lyme studies with presumptive positive, western blot neg
TSH wnl
Mild troponin elevation likely secondary to type 2 [place] 2/2 complete heart block
Monitor
s/p pacemaker
Cardiology follow-up outpatient
alcohol use disorder
Appears to be having mild alcohol withdrawal. Required Ativan
reports 3 rum and cokes daily
- MSAS protocol
Now improved
#hyperkalemia
Monitor
Resolved
#acute kidney injury
Metabolic acidosis
creat now improving
- monitor BMP
- hold ramipril
Nephrology following
Now with Cerda catheter after acute retention. Continue with Flomax. Add Proscar. stopped Cardura. sees urologist outpatient
change in mental suspect possibility of acute on chronic
No slurred speech, aphasia
ABG without hypercarbia
Will hold trazodone. Continue with Klonopin for now
Discussed with spouse and she also noted memory impairment lately. Suspect likely progressing towards cognitive impairment/dementia
No signs of hallucination
Urinary tract infection
Switch antibiotic to cefdinir.
Urine culture no growth however he had symptoms of UTI with dysuria,increase frequency
Thrombocytopenia
Monitor
Acute urinary retention
Bladder scan, straight cath as needed
hypertension
Hypertensive urgency on admission
- hold ramipril
- start amlodipine, also on hydralazine
hyperlipidemia
- continue atorvastatin
type 2 diabetes
a1c 6.3
reports is diet controlled
- monitor for hypo/hyper glycemia
bipolar depression
- continue bupropion and venlafaxine
Hold trazodone
#AMBROSE
on CPAP at night
- CPAP PRN and HS. Appears to be noncompliant at times
Code status: full code
DVT prophylaxis: heparin sq
Anticipated Discharge: Today
Subjective/Interval History
-
Date of Service: May 01, 2025
denies pain
Objective Data
-
Labs:
Laboratory Results
05/01/25
04:36
WBC 7.1
Hgb 11.1 L
Hct 32.6 L
Plt Count 135
Sodium 136
Potassium 4.3
Chloride 107
Carbon Dioxide 26
BUN 16
Creatinine 0.8
Glucose 106 H
Calcium 8.3 L
Vital Signs:
Vital Signs
Temp Pulse Resp BP Pulse Ox
98.5 F 80 20 121/78 95
05/01/25 07:38 05/01/25 10:00 05/01/25 07:38 05/01/25 09:32 05/01/25 07:38
I&O
04/30/25 05/01/25 05/02/25
06:59 06:59 06:59
Intake Total 480 / 480 960 / 960
Output Total 1999 / 1999 2350 / 2350
Balance -1520 / -1520 -1390 / -1390
--- NOTE | 2025-05-01 10:44 | W.DCSUMMARY ---
Discharge Summary
Discharge Data
Date of Admission: 04/25/25
Date of Discharge: 05/01/25
-
Pending Results: No
Hospital Course
80-year-old male with past medical history of alcohol use disorder, suspected cognitive impairment, BPH, hypertension, hyperlipidemia, type 2 diabetes mellitus, bipolar, depression, AMBROSE on CPAP came to the hospital with generalized weakness
secondary to complete heart block. Patient was seen by cardiology and was taken for dual-chamber pacemaker placement. Postop patient instructed to follow-up closely with cardiology outpatient. Echocardiogram was done which showed mild aortic
stenosis with a EF of 65%. Patient also had mild troponin elevation which continue to improve over time. Patient also did had mild alcohol withdrawal while he was here which was treated with as needed Ativan. He also had acute kidney injury along
with metabolic acidosis and was seen by nephrology. Patient continued to had urinary retention requiring Calvillo catheter. He was instructed to follow-up with urology closely outpatient and to maintain Calvillo catheter and to do voiding trial at
rehab. For his blood pressure he was also started on hydralazine and was instructed to monitor blood pressure outpatient and to uptitrate medication as needed. His mental status appears to improve over time. He was also evaluated by physical
therapy who recommended SNF. Once his symptoms continue to improve, he was then discharged to rehab with instructions to follow-up with all his physicians outpatient.
Discharge Plan
-
Patient Disposition: [facility]/SNF
Discharge Diagnosis/Procedures: Complete heart block, s/p [employer] dual chamber permanent pacemaker implant 04/26/25
Alcohol use disorder with alcohol withdrawal
Acute kidney injury
Metabolic acidosis
Suspect cognitive impairment
UTI
Acute urinary retention
Hypertensive urgency
Condition: Fair
Diet: Low Cholesterol
Activity: As tolerated
Driving Restrictions: As prior to admission
Bathing Restrictions: None
Activity Restrictions/Additional Instructions:
Voiding trial at rehab
Follow-up with your urologist outpatient
Continue antibiotic through 05/04/2025
Follow-up with neurology outpatient
Stand Alone Forms: DC Inst - Implanted Device
Referrals:
[facility] [Provider Group] - 05/03/25 11:00 am
Referral Note: Post device incision check appointment
[facility] [Outside]
Referral Note: RN/PT/OT
[facility] [Outside]
Lawson Hood DO [Family Provider, Internal Medicine] - in less than 1 week
Prescriptions:
New
hydralazine 25 mg Tablet
25 mg PO BID Qty: 0 0RF
tamsulosin 0.4 mg Capsule
0.4 mg PO DAILY Qty: 0 0RF
folic acid 1 mg Tablet
1 mg PO DAILY Qty: 0 0RF
amlodipine 10 mg Tablet
10 mg PO DAILY Qty: 0 0RF
cefdinir 300 mg Capsule
300 mg PO Q12 Qty: 0 0RF
finasteride 5 mg Tablet
5 mg PO DAILY Qty: 0 0RF
thiamine mononitrate (vit B1) 100 mg Tablet
100 mg PO BID Qty: 0 0RF
Continued
atorvastatin 40 MG tablet
40 mg PO DAILY
ascorbic acid (vitamin C) [Vitamin C] 500 MG tablet
500 mg PO DAILY
B-complex with vitamin C [Super B/C] 1 EACH capsule
1 ea PO DAILY
acetaminophen 500 mg Tablet
1,000 mg PO Q6HPRN PRN (Reason: mild pain)
Glucosamine Chondroitin 550-30-1 mg Capsule
1 cap PO DAILY
venlafaxine 75 mg capsule,extended release 24hr
75 mg PO DAILY
Rx Instructions:
taken w/ 150mg = 225mg
venlafaxine 150 mg capsule,extended release 24hr
150 mg PO DAILY
Rx Instructions:
taken w/ 75mg = 225mg
bupropion HCl [Wellbutrin XL] 150 mg Tablet Extended Release 24 Hr
150 mg PO DAILY
clonazepam 2 MG tablet
2 mg PO HS Qty: 3 0RF
Held
ramipril 10 mg capsule
10 mg PO DAILY
Hold Instructions: Restart when okay with cardiology
Discontinued
doxazosin 8 mg Tablet
8 mg PO HS
trazodone 100 mg tablet
100 mg PO HS
Discharge Orders:
Discharge Patient (As Directed); Ordered 05/01/25
Ordered By: Andrez Penny
Care Plan Goals
Care Plan Goals:
Problem: Readiness for enhanced knowledge related to diagnosis and treatment plan
Goal: Understand your diagnosis and treatment plan needs, including medications if applicable.
Instructions: Know your diagnosis, underlying causes and treatment plan options, including medications if applicable. Consult with your health care team to learn about your diagnosis and treatment plan, including medications if applicable.
Discharge Date and Time
Print Language: BELARUSIAN
--- NOTE | 2025-05-01 13:40 | PTCARENOTE ---
Report called to RNChucky at [facility] 4th floor. Pt's IV line & technical support internship D/C'd Assisted pt w/dressing to leave. Pt escorted out via WC w/spouse driving pt to [facility]. Pt left w/personal belongings incl cell phone.
== END 2025-05-01 13:45 | DRG 242 ==
LOC: IVU 19:15
PROVIDERS: Internal Medicine; Internal Medicine Cardiovascular Disease; Nurse Practitioner Family; Physician Assistant; ADMITTING PHYSICIAN Hospitalist; ATTENDING PHYSICIAN Internal Medicine; CONSULT PHYSICIAN Specialist; EMERGENCY PHYSICIAN Emergency Medicine; FAMILY PHYSICIAN Internal Medicine; OTHER PHYSICIAN Internal Medicine Cardiovascular Disease
PROC: 5A09357 Assistance with Respiratory Ventilation, Less than 24 Consecutive Hours, Continuous Positive Airway Pressure (ICD-10-PCS; 2025-04-25)
PROC: 02H63JZ Insertion of Pacemaker Lead into Right Atrium, Percutaneous Approach (ICD-10-PCS; 2025-04-26)
PROC: 0JH606Z Insertion of Pacemaker, Dual Chamber into Chest Subcutaneous Tissue and Fascia, Open Approach (ICD-10-PCS; 2025-04-26)
PROC: 02HK3JZ Insertion of Pacemaker Lead into Right Ventricle, Percutaneous Approach (ICD-10-PCS; 2025-04-26)
DX: I44.2 Atrioventricular block, complete (principal); I21.A1 Myocardial infarction type 2; I50.33 Acute on chronic diastolic (congestive) heart failure; F31.30 Bipolar disorder, current episode depressed, mild or moderate severity, unspecified; N17.9 Acute kidney failure, unspecified; N39.0 Urinary tract infection, site not specified; E87.20 Acidosis, unspecified; F10.139 Alcohol abuse with withdrawal, unspecified; G47.33 Obstructive sleep apnea (adult) (pediatric); E78.00 Pure hypercholesterolemia, unspecified; I12.9 Hypertensive chronic kidney disease with stage 1 through stage 4 chronic kidney disease, or unspecified chronic kidney disease; N18.9 Chronic kidney disease, unspecified; E11.22 Type 2 diabetes mellitus with diabetic chronic kidney disease; K21.9 Gastro-esophageal reflux disease without esophagitis; I16.0 Hypertensive urgency; E87.5 Hyperkalemia; E66.9 Obesity, unspecified; F43.10 Post-traumatic stress disorder, unspecified; G89.29 Other chronic pain; D69.6 Thrombocytopenia, unspecified; M54.9 Dorsalgia, unspecified; F41.9 Anxiety disorder, unspecified; Z96.642 Presence of left artificial hip joint; Z79.4 Long term (current) use of insulin; Z91.040 Latex allergy status; Z79.899 Other long term (current) drug therapy; Z79.1 Long term (current) use of non-steroidal anti-inflammatories (NSAID); Z68.34 Body mass index [BMI] 34.0-34.9, adult
CPT/HCPCS: 33208; 36600; 71045; 76770; 80048; 80053; 80061; 81003; 81015; 82570; 82805; 82962; 83036; 83735; 83880; 84132; 84156; 84300; 84443; 84484; 85025; 86617; 86618; 87086; 93005; 93306; 94660; 96361; 96374; 97116; 97162; 97530; 99291; 99406; C1785; C1898; J7030; Q9967

== ENCOUNTER → 2025-05-03 11:49 | Outpatient (REF) | payer MEDICARE, OTHER, SELFPAY ==
[2025-05-03 12:44] LABS: Hematocrit 33.6 % (39.0-52.0); Hemoglobin 11.7 g/dL (13.0-18.0); Mean Corp Hgb Conc. 34.8 g/dL (33.0-37.0); Mean Corpuscular Volume 93.3 fL (80.0-94.0); Platelet Count 154 10^3/uL (130-400); Red Cell Dist. Width 11.6 % (11.5-14.5)
[2025-05-03 13:09] LABS: Blood Urea Nitrogen 19 mg/dl (9-20); Calcium 8.6 mg/dl (8.4-10.2); Carbon Dioxide 24 mmol/L (22-30); Chloride 105 mmol/L (98-107); Glucose 116 mg/dl (70-99); Potassium 4.4 mmol/L (3.5-5.1); Sodium 134 mmol/L (135-145); eGFR > 60.00
== END ==
LOC: OLABP 11:49
PROVIDERS: ATTENDING PHYSICIAN Internal Medicine
DX: D64.9 Anemia, unspecified (principal); Z48.812 Encounter for surgical aftercare following surgery on the circulatory system; I16.0 Hypertensive urgency; E11.9 Type 2 diabetes mellitus without complications; N39.0 Urinary tract infection, site not specified; E87.20 Acidosis, unspecified; N40.0 Benign prostatic hyperplasia without lower urinary tract symptoms; N17.9 Acute kidney failure, unspecified; G47.33 Obstructive sleep apnea (adult) (pediatric); I44.2 Atrioventricular block, complete
CPT/HCPCS: 36415; 80048; 85027